=== PATIENT | female | born 1935 | race Caucasian/White ===

== ENCOUNTER 2017-06-22 13:50 | Observation (INO) ==
--- NOTE | 2017-06-22 14:15 | Emergency Department Note ---
Disposition Clinical Impression: Aortic atherosclerosis, Chest pain, rule out acute myocardial infarction Dyspnea Qualifiers: Dyspnea type: unspecified Qualified Code(s): R06.00 - Dyspnea, unspecified Disposition: Admitted As Inpatient Condition: Fair Referrals: Lang Flannery Jr, MD [Primary Care Provider] - Forms: ED Satisfaction Letter Time of Disposition: 17:43 SOB HPI - General Chief Complaint: ED Shortness of Breath/Dyspnea Stated Complaint: MARLENA Time Seen by Provider: 06/22/17 14:13 Source: patient Mode of arrival: ambulatory Limitations: no limitations Nursing Notes Reviewed: Yes Vital Signs Reviewed: Yes - History of Present Illness 82-year-old female hx of HTN, DM, complaining of shortness of breath last 1-2 days, she states the shortness of breath occurred acutely, she felt acutely short of breath, patient denies any chest pain. Patient states that she is no history of DVT or PE, no recent surgery prolonged recumbency, denies any hemoptysis or leg swelling. Patient states that she has no history of cardiac workup, she has no history of high blood pressure or diabetes. Pt Subjective Complaint: shortness of breath Onset (ago): hour(s) Context: occurred during exertion Severity: mild Improves with: nothing Worsens with: nothing Associated symptoms: Reports: orthopnea. Denies: chest pain, pain with inspiration, fever, cough, sputum production, lower extremity pain, palpitations Treatment prior to arrival: none Cough present: No - Related Data Allergies Allergy/AdvReac Type Severity Reaction Status Date / Time No Known Allergies Allergy Verified 06/22/17 13:53 All systems ED: reviewed and negative except as stated. Review of Systems: As Per HPI Constitutional: Denies: fever, chills Eyes: Denies: eye pain ENT ED: Denies: ear pain Cardiovascular: Denies: chest pain Respiratory: Reports: as per HPI, dyspnea. Denies: cough Gastrointestinal: Denies: abdominal pain Genitourinary: Denies: urgency Musculoskeletal: Denies: back pain, neck pain Integumentary: Denies: rash Neurological: Denies: headache Psychiatric: Denies: anxiety Past Medical History - Past Medical History Attestation: Yes The following information was validated with the patient. Source: patient Medical history: Reports: diabetes, hypertension Psychiatric history: Reports: no psych history - Social History Smoking Status: Never smoker Physical Exam Constitutional: Elderly female appears very anxious, vital signs are stable Eyes: PERRLA, sclera anicteric ENT & Mouth: MMM Neck: normal inspection, neck is supple Resp: CTA bilaterally, no resp distress CV: RRR, no m/g/r GI: normal inspection, soft, no guarding or rigidity Neuro: A&O3, CNII-XII grossly intact, MARCUM Skin: on limited exam, skin intact with no rashes or lesions - General Limitations: no limitations General appearance: alert, in no apparent distress Course Course Narrative: 82 to female with stress of breath, concerning given that she has EKG changes with inverted T waves in V5 and V6, patient is had about a day and a half symptoms she feels short of breath and worse with deep inspiration, with CT of her chest as an concern for PE in this elderly female with acute onset dyspnea, she is not oxygen dependent at baseline, she is not a smoker, does not really have much medical history. Plan is for cardiac workup and she also has large amount of constipation, so the plan will be for possible admission given her age and risk factors. - Reevaluation(s) Reevaluation #1: Spoke with Anthony MARTINO he recommends hydralazine for blood pressure management, and cardiology consult, Dr. Lal has been paged, plan is for admission for shortness of breath EKG changes, mildly elevated BNP, patient will be admitted to medicine service with telemetry Time: 17:43 - Consultations Consultation #1: Consulted Cardiology Time: 17:44 Vital Signs Temperature 98.3 F 06/22/17 13:54 Pulse Rate 90 06/22/17 13:54 Respiratory Rate 18 06/22/17 13:54 Blood Pressure 162/104 06/22/17 13:54 O2 Sat by Pulse Oximetry 100 06/22/17 13:54 Temperature 98.3 F 06/22/17 13:54 Pulse Rate 91 06/22/17 17:07 Respiratory Rate 18 06/22/17 17:07 Blood Pressure 182/121 06/22/17 17:07 O2 Sat by Pulse Oximetry 100 06/22/17 17:07 Oxygen Delivery Oxygen Delivery Room Air Shortness of Breath/Dyspnea - Differential Diagnosis Likely: acute exacerbation of chronic obstructive airways disease, congestive heart failure, pneumonia, pulmonary embolism - Medical Records Medical records reviewed: Yes I reviewed the patient's medical records. - Lab Data Lab results reviewed: Yes I reviewed the patient's lab results. Result diagrams: 06/22/17 14:43 06/22/17 14:43 Lab Results 06/22/17 06/22/17 06/22/17 Range/Units 14:43 14:43 14:43 WBC 10.9 (4.3-11.1) K/mcL RBC 4.03 (3.82-4.97) M/mcL Hgb 13.1 (11.5-15.4) g/dL Hct 39.6 (35.3-44.9) % MCV 98.3 (83.0-100.0) fL MCH 32.5 (28.0-33.3) pg MCHC 33.1 (31.6-35.5) g/dL RDW 14.1 (11.5-14.5) % Plt Count 246 (140-400) K/mcL MPV 11.0 (9.4-12.4) fL Immature Gran % 0.4 (0-4) % Seg Neutrophils % 74.9 % Lymphocytes % 14.5 % Monocytes % 9.5 % Eosinophils % 0.2 % Basophils % 0.5 % Neutrophils # 8.2 (1.6-8.9) K/mcL Lymphocytes # 1.6 (0.6-4.6) K/mcL Monocytes # 1.0 (0.0-1.3) K/mcL Eosinophils # 0.0 (0.0-0.6) K/mcL Basophils # 0.1 (0.0-0.2) K/mcL Sodium (136-145) mEq/L Potassium (3.5-5.1) mEq/L Chloride (98-107) mEq/L Carbon Dioxide (23-29) mEq/L BUN (8-23) mg/dL Creatinine (0.60-1.20) mg/dL Est GFR ( Amer) (> 60) Est GFR (Non-Af Amer) (> 60) BUN/Creatinine Ratio (6-26) Glucose (70-105) mg/dL Calculated Osmolality (280-300) Lactic Acid 1.4 (0.5-2.2) mmol/L Calcium (8.6-10.3) mg/dL Total Bilirubin (0.3-1.0) mg/dL Direct Bilirubin (0.0-0.2) mg/dL Indirect Bilirubin (0.0-1.2) mg/dL AST (13-39) Units/L ALT (7-52) Units/L Alkaline Phosphatase (34-104) Units/L Troponin I < 0.03 (< 0.04) ng/mL B-Natriuretic Peptide (Less than 100) pg/mL Serum Total Protein (6.4-8.9) g/dL Albumin (3.5-5.7) g/dL Globulin (2.4-3.5) g/dL Albumin/Globulin Ratio (1.1-2.2) Lipase (11-82) Units/L 06/22/17 06/22/17 Range/Units 14:43 14:43 WBC (4.3-11.1) K/mcL RBC (3.82-4.97) M/mcL Hgb (11.5-15.4) g/dL Hct (35.3-44.9) % MCV (83.0-100.0) fL MCH (28.0-33.3) pg MCHC (31.6-35.5) g/dL RDW (11.5-14.5) % Plt Count (140-400) K/mcL MPV (9.4-12.4) fL Immature Gran % (0-4) % Seg Neutrophils % % Lymphocytes % % Monocytes % % Eosinophils % % Basophils % % Neutrophils # (1.6-8.9) K/mcL Lymphocytes # (0.6-4.6) K/mcL Monocytes # (0.0-1.3) K/mcL Eosinophils # (0.0-0.6) K/mcL Basophils # (0.0-0.2) K/mcL Sodium 136 (136-145) mEq/L Potassium 3.9 (3.5-5.1) mEq/L Chloride 103 (98-107) mEq/L Carbon Dioxide 25 (23-29) mEq/L BUN 23 (8-23) mg/dL Creatinine 0.97 (0.60-1.20) mg/dL Est GFR ( Amer) > 60 (> 60) Est GFR (Non-Af Amer) 55 L (> 60) BUN/Creatinine Ratio 24 (6-26) Glucose 151 H (70-105) mg/dL Calculated Osmolality 289 (280-300) Lactic Acid (0.5-2.2) mmol/L Calcium 9.4 (8.6-10.3) mg/dL Total Bilirubin 1.4 H (0.3-1.0) mg/dL Direct Bilirubin 0.3 H (0.0-0.2) mg/dL Indirect Bilirubin 1.1 (0.0-1.2) mg/dL AST 9 L (13-39) Units/L ALT 7 (7-52) Units/L Alkaline Phosphatase 76 (34-104) Units/L Troponin I (< 0.04) ng/mL B-Natriuretic Peptide 114 H (Less than 100) pg/mL Serum Total Protein 7.0 (6.4-8.9) g/dL Albumin 3.9 (3.5-5.7) g/dL Globulin 3.1 (2.4-3.5) g/dL Albumin/Globulin Ratio 1.3 (1.1-2.2) Lipase < 3 L (11-82) Units/L - Radiology Data Radiology results reviewed: Yes I reviewed the patient's radiology results. Chest X-Ray 06/22/17 13:57 IMPRESSION: Calcific atherosclerotic disease aorta. No acute disease. D/ / Jay Jay Dimas / Jay Jay Dimas Interpreting Provider: Jay Jay Dimas Abdomen/Pelvis CT 06/22/17 15:17 IMPRESSION: 1. No evidence of pulmonary emboli. 2. No acute chest findings. 3. No acute findings within the abdomen or pelvis. 4. Moderate to severe atherosclerotic disease of the abdominal aorta with plaque causing approximately 25-30% areas of stenosis. 5. Diffuse osteopenia with severe degenerative changes of the lower thoracic and lumbar spine. Grade 1 anterolisthesis of L3 on L4 is noted. 6. Normal appendix. 7. Small focus of air in the bladder may represent sequela of recent instrumentation. 8. Moderate to large stool burden in the right colon. D/ /22/2017 17:02:19 Martir Bertrand MD / etser Interpreting Provider: Martir Bertrand MD Chest CTA 06/22/17 15:17 IMPRESSION: 1. No evidence of pulmonary emboli. 2. No acute chest findings. 3. No acute findings within the abdomen or pelvis. 4. Moderate to severe atherosclerotic disease of the abdominal aorta with plaque causing approximately 25-30% areas of stenosis. 5. Diffuse osteopenia with severe degenerative changes of the lower thoracic and lumbar spine. Grade 1 anterolisthesis of L3 on L4 is noted. 6. Normal appendix. 7. Small focus of air in the bladder may represent sequela of recent instrumentation. 8. Moderate to large stool burden in the right colon. D/ / 06/22/2017 17:02:19 Martir Bertrand MD / ester Interpreting Provider: Martir Bertrand MD - EKG Data EKG attestation: Yes I reviewed and interpreted this EKG. EKG shows normal: Reports: sinus rhythm Rate: Reports: normal Rhythm: Reports: NSR (90 bpm MT 127 QRS 100 QTC 403 no evidence of acute ST segment elevations or depressions, inverted T wave in V5 V6) T wave inversions noted in: Reports: v5, v6 Interpretation: Reports: nonspecific ST-T wave changes - Core Measures AMI Core Measures Followed: Yes Attestation Statement - Attestation Attestation: I, Bob Curtis DO, examined this patient [id number] and my medical decision-making was reviewed with Dr. Anthony Seymour, Resident Physician. I agree with the documented findings, disposition and treatment plan as described except to the extent set forth below. Please see my progress notes for details. 82-year-old female presents to emergency room complaining of shortness of breath abdominal pain. Patient's pain across anterior chest wall hurts when she takes deep S. Patient denies any smoking history or cardiac disease. Vital signs are stable and in no acute distress. Patient is showing signs of hypoxia which is new for her. She typically does not use oxygen. Lungs are clear heart is regular abdomen is soft nontender nondistended with no guarding no rigidity but she does have some distention of loops of bowel based on my palpation. She also says that she has difficulty with bowel movements at home. She has no signs of pitting edema she has questions appropriately does not show any acute signs of neurologic deficit issue. The patient does speak in full sentences and is not in any distress. She is appropriate neurologic function and shows no acute signs of neurologic deficit. Patient will have screening evaluation completed a CBC chemistry urinalysis as well as EKG chest x -ray and possibly CT scan of the chest and CT abdomen ruling out any other potential pathology considering she is concerning for pulmonary emboli and possible bowel torsion versus constipation. Patient will require further workup and treatment course here in the emergency room. See detailed documentation of the physical exam, medical intervention, medical decision- making and disposition and the resident physician's note. No critical care was applied during this patient's treatment course at this time. 1725 Patient discussed with the hospitalist for what appears to be exertional dyspnea and cardiac strain. Patient will be admitted for shortness of breath related presentation and lateral ischemic changes on EKG. Blood pressure was asked to be augmented. Medications provided here. No other concerns or issues noted at this time. Admission process could be completed.
[2017-06-22 14:59] LABS: Basophils # 0.1 K/mcL (0.0-0.2); Basophils % 0.5 %; Eosinophils % 0.2 %; Hematocrit 39.6 % (35.3-44.9); Hemoglobin 13.1 g/dL (11.5-15.4); Immature Granulocytes % 0.4 % (0-4); Lymphocytes # 1.6 K/mcL (0.6-4.6); Lymphocytes % 14.5 %; Mean Corpuscular HGB Conc 33.1 g/dL (31.6-35.5); Mean Corpuscular Hemoglobin 32.5 pg (28.0-33.3); Mean Corpuscular Volume 98.3 fL (83.0-100.0); Monocytes % 9.5 %; Neutrophils # 8.2 K/mcL (1.6-8.9); Platelet Count 246 K/mcL (140-400); Red Blood Count 4.03 M/mcL (3.82-4.97); Red Cell Distribution Width 14.1 % (11.5-14.5); Segmented Neutrophils % 74.9 %
[2017-06-22 15:04] LABS: Albumin 3.9 g/dL (3.5-5.7); Bilirubin,Direct 0.3 mg/dL (0.0-0.2); Bilirubin,Indirect 1.1 mg/dL (0.0-1.2); Bilirubin,Total 1.4 mg/dL (0.3-1.0)
[2017-06-22 16:00] LABS: Alanine Aminotransferase 7 Units/L (7-52); Albumin/Globulin Ratio 1.3 (1.1-2.2); Alkaline Phosphatase 76 Units/L (34-104); Aspartate Amino Transferase 9 Units/L (13-39); BUN/Creatinine Ratio 24 (6-26); Blood Urea Nitrogen 23 mg/dL (8-23); Calcium 9.4 mg/dL (8.6-10.3); Carbon Dioxide 25 mEq/L (23-29); Chloride 103 mEq/L (98-107); Globulin 3.1 g/dL (2.4-3.5); Glucose 151 mg/dL (70-105); Lipase < 3 Units/L (11-82); Osmolality,Calculated 289 (280-300); Potassium 3.9 mEq/L (3.5-5.1); Sodium 136 mEq/L (136-145); eGFR For African Americans > 60 (> 60); eGFR For Non-African Americans 55 (> 60)
[2017-06-22] MEDS ORDERED: Aspirin 81 MG TAB.CHEW PO ONE (17:32)
--- NOTE | 2017-06-22 18:03 | Internal Med History&Physical ---
Date of Encounter: 06/22/17 Time of Encounter: 18:00 Assessment and Plan (1) Hypertensive urgency Current visit: Yes Status: Acute Patient most likely has uncontrolled hypertension for prolonged Time with EKG changes of LVH with strain pattern will obtain 2-D echo in the morning (2) Diabetes 1.5, managed as type 2 Current visit: Yes Status: Chronic Chronic resume home medication and place on sliding scale (3) Obesity Current visit: Yes Status: Chronic Chronic Qualifiers: Obesity type: due to excess calories Obesity classification: adult class 2 (BMI 35 - 39.9) Serious obesity comorbidity presence: unspecified whether serious comorbidity present Body mass index: unspecified BMI Qualified Code( s): E66.09 - Other obesity due to excess calories (4) Chest pain, rule out acute myocardial infarction Current visit: Yes Status: Acute Currently chest pain with shortness of breath we will obtain nuclear stress test in a.m. (5) Dyspnea Current visit: Yes Status: Acute Likely anginal equivalent CTA was negative for pulmonary embolism Qualifiers: Dyspnea type: unspecified Qualified Code(s): R06.00 - Dyspnea, unspecified Internal Medicine - H&P: HPI Chief complaint: chest pain and sob Admitted From: Emergency Dept Plans for Post Hospital Care: Home History of present illness: Ms. Cox is a 82 year old female Patient with history of diabetes, hypertension, obesity, but no prior cardiac event history patient presented emergency room due to shortness of breath she has been having also some chest pain in the last few days she says she would just some pain she laid down and it goes away but no chest pain today Because of acute shortness of breath had a CTA done which was negative for pulmonary embolism blood pressure was 186/109 and came down to 182/121 EKG shows some changes of LVH with strain pattern with T-wave inversion in lead 5 and 6 which is not of ischemia but mostly of LVH with strain patient admitted for further cardiac evaluation. Past Med Surg Social Fam HX - Past Medical History Medical history: diabetes, hypertension Psychiatric history: no psych history - Social History Smoking Status: Never smoker Internal Medicine - H&P: Meds Aspirin Enteric Coated [Aspirin EC] 81 mg PO DAILY 06/22/17 [History] Febuxostat [Uloric] 80 mg PO DAILY 06/22/17 [History] Fesoterodine Fumarate [Toviaz] 4 mg PO DAILY 06/22/17 [History] HYDROcodone/Acet 5/325 mg [Ryan 5-325 mg] 1 tab PO Q6H PRN 06/22/17 [History] Ibuprofen [Ibuprofen] 800 mg PO TID PRN 06/22/17 [History] Indapamide [Lozol] 2.5 mg PO DAILY 06/22/17 [History] Insulin DETEMIR [Levemir Flextouch] 28 unit SQ QAM 06/22/17 [History] LORazepam [Ativan] 1 mg PO BID PRN 06/22/17 [History] Linaclotide [Linzess] 290 mcg PO DAILY 06/22/17 [History] Lisinopril [Zestril] 20 mg PO DAILY 06/22/17 [History] Omeprazole [PriLOSEC] 20 mg PO DAILY 06/22/17 [History] Promethazine [Phenergan] 25 mg PO Q6H PRN 06/22/17 [History] Sitagliptin Phosphate [Januvia] 50 mg PO DAILY 06/22/17 [History] 3 Allergy/AdvReac Type Severity Reaction Status Date / Time No Known Allergies Allergy Verified 06/22/17 13:53 All Systems PM: A 10-system review of systems was performed and is negative for pertinent findings except as documented above in the HPI. - Constitutional Constitutional: no chills, no fever(s), no night sweats - EENT Eyes: no change in vision, no discharge, no pain, no photophobia Ears: no ear discharge, no ear pain, no tinnitus Nose, mouth and throat: no dysphagia, no nasal discharge, no neck pain, no sore throat - Cardiovascular Cardiovascular ROS IM: chest pain, dyspnea, dyspnea on exertion - Respiratory Respiratory: dyspnea on exertion - Gastrointestinal Gastrointestinal: no abdominal pain, no diarrhea, no hematemesis, no hematochezia, no melena, no nausea, no vomiting - Genitourinary Genitourinary: no change in urinary stream, no dysuria, no flank pain, no hematuria - Musculoskeletal Musculoskeletal ROS IM: no numbness, no tingling - Constitutional Vitals: Temp Pulse Resp BP Pulse Ox 98.3 F 91 18 182/121 100 06/22/17 13:54 06/22/17 17:07 06/22/17 17:07 06/22/17 17:07 06/22/17 17:07 - Eye Eye exam: Present: PERRL, conjuntiva pink, sclera anicteric Pupils: Present: PERRL - Neck Neck exam general surgery: Present: supple, trachea midline. Absent: lymphadenopathy - Respiratory Respiratory exam: Present: CTAB. Absent: accessory muscle use, rales, rhonchi, wheezes - Cardiovascular Cardiovascular exam: Present: RRR, +S1, +S2. Absent: diastolic murmur, gallop, rubs, systolic murmur - GI/Abdominal GI/Abdominal exam: Present: normal bowel sounds, soft, no peritoneal signs. Absent: distended, tenderness Internal Med - H&P Results - Labs CBC & Chem 7: 06/22/17 14:43 06/22/17 14:43 Labs: Short CBC 06/22/17 Range/Units 14:43 WBC 10.9 (4.3-11.1) K/mcL Hgb 13.1 (11.5-15.4) g/dL Hct 39.6 (35.3-44.9) % Plt Count 246 (140-400) K/mcL Neutrophils # 8.2 (1.6-8.9) K/mcL BMP 06/22/17 14:43 Sodium 136 Potassium 3.9 Chloride 103 Carbon Dioxide 25 BUN 23 Creatinine 0.97 Glucose 151 H Calcium 9.4 Cardiac Enzymes 06/22/17 Range/Units 14:43 Troponin I < 0.03 (< 0.04) ng/mL Liver Function 06/22/17 Range/Units 14:43 Total Bilirubin 1.4 H (0.3-1.0) mg/dL Direct Bilirubin 0.3 H (0.0-0.2) mg/dL AST 9 L (13-39) Units/L ALT 7 (7-52) Units/L Alkaline Phosphatase 76 (34-104) Units/L Albumin 3.9 (3.5-5.7) g/dL - Impressions ITS Impressions Chest X-Ray 06/22/17 13:57 IMPRESSION: Calcific atherosclerotic disease aorta. No acute disease. D/ / Jay Jay Dimas / Jay Jay Dimas Interpreting Provider: Jay Jay Dimas Abdomen/Pelvis CT 06/22/17 15:17 IMPRESSION: 1. No evidence of pulmonary emboli. 2. No acute chest findings. 3. No acute findings within the abdomen or pelvis. 4. Moderate to severe atherosclerotic disease of the abdominal aorta with plaque causing approximately 25-30% areas of stenosis. 5. Diffuse osteopenia with severe degenerative changes of the lower thoracic and lumbar spine. Grade 1 anterolisthesis of L3 on L4 is noted. 6. Normal appendix. 7. Small focus of air in the bladder may represent sequela of recent instrumentation. 8. Moderate to large stool burden in the right colon. D/ /22/2017 17:02:19 Martir Bertrand MD / ester Interpreting Provider: Martir Bertrand MD Chest CTA 06/22/17 15:17
[2017-06-22] MEDS ORDERED: Naloxone 0.4 MG/ML INJ IVP PRN (18:07)
[2017-06-22] MEDS ORDERED: traMADol 50 MG TABLET PO PRN (18:07)
[2017-06-22] MEDS ORDERED: Acetaminophen 325 MG TABLET PO PRN (18:07)
[2017-06-22] MEDS ORDERED: *HR* LORazepam 1 MG TABLET PO PRN (18:10)
[2017-06-22] MEDS ORDERED: Ibuprofen 800 MG TABLET PO PRN (18:10)
[2017-06-22] MEDS ORDERED: *HR* HYDROcodone/Acet 5/325 mg TABLET PO PRN (18:10)
[2017-06-22 19:04] LABS: Bacteria,Urine Many per hpf (None-Few); Bilirubin,Urine Negative (Negative); Blood,Urine Negative (Negative); Clarity,Urine Cloudy (Clear); Color,Urine Yellow (Yellow); Glucose,Urine (UA) Normal (Normal); Hyaline Casts,Urine Few per lpf (None-Few); Ketones,Urine Negative (Negative); Leukocyte Esterase,Urine Negative (Negative); Nitrite,Urine Negative (Negative); PH,Urine 6.5 pH Units (5.0-8.0); Protein,Urine Trace mg/dL (Neg-Trace); Specific Gravity,Urine > 1.030 (1.010-1.025); Squamous Epithelial Cell,Urine Many per lpf (None-Few); Urobilinogen,Urine Normal (Normal)
[2017-06-22] MEDS: amLODIPine 5 MG TABLET PO SCH (20:20)
[2017-06-22] MEDS ORDERED: amLODIPine 5 MG TABLET PO ONE (20:30)
[2017-06-22] MEDS: 0.9 % Sodium Chloride 1,000 ML IVC SCH (21:29)
[2017-06-23 00:54] LABS: Basophils # 0.1 K/mcL (0.0-0.2); Basophils % 0.5 %; Eosinophils % 0.3 %; Hematocrit 36.9 % (35.3-44.9); Hemoglobin 12.3 g/dL (11.5-15.4); Immature Granulocytes % 0.5 % (0-4); Lymphocytes # 1.3 K/mcL (0.6-4.6); Lymphocytes % 12.9 %; Mean Corpuscular HGB Conc 33.3 g/dL (31.6-35.5); Mean Corpuscular Hemoglobin 32.6 pg (28.0-33.3); Mean Corpuscular Volume 97.9 fL (83.0-100.0); Mean Platelet Volume 10.5 fL (9.4-12.4); Monocytes # 1.2 K/mcL (0.0-1.3); Monocytes % 11.6 %; Neutrophils # 7.6 K/mcL (1.6-8.9); Platelet Count 222 K/mcL (140-400); Red Blood Count 3.77 M/mcL (3.82-4.97); Red Cell Distribution Width 14.1 % (11.5-14.5); Segmented Neutrophils % 74.2 %
[2017-06-23 01:44] LABS: Alanine Aminotransferase 6 Units/L (7-52); Albumin 3.4 g/dL (3.5-5.7); Albumin/Globulin Ratio 1.2 (1.1-2.2); Alkaline Phosphatase 67 Units/L (34-104); Aspartate Amino Transferase 9 Units/L (13-39); BUN/Creatinine Ratio 22 (6-26); Blood Urea Nitrogen 21 mg/dL (8-23); Calcium 9.1 mg/dL (8.6-10.3); Carbon Dioxide 26 mEq/L (23-29); Chloride 103 mEq/L (98-107); Chol/HDL Ratio 3.3 (0-4.9); Cholesterol 201 mg/dL (< 200); Globulin 2.9 g/dL (2.4-3.5); Glucose 134 mg/dL (70-105); HDL Cholesterol 61 mg/dL (40-59); LDL Cholesterol,Calculated 128 mg/dL (0-99); Magnesium 1.8 mg/dL (1.6-2.6); Osmolality,Calculated 287 (280-300); Potassium 3.8 mEq/L (3.5-5.1); Sodium 136 mEq/L (136-145); Total Protein 6.3 g/dL (6.4-8.9); Triglycerides 62 mg/dL (< 150); eGFR For African Americans > 60 (> 60); eGFR For Non-African Americans 56 (> 60)
[2017-06-23] MEDS ORDERED: Regadenoson 0.4 MG/5 ML SYRINGE IVP ONE (06:29)
[2017-06-23] MEDS ORDERED: INSULIN DETEMIR 28 UNIT SQ SCH (09:00)
--- NOTE | 2017-06-23 11:23 | Internal Med Progress Note ---
Date of Encounter: 06/23/17 Time of Encounter: 10:58 - Assessment and plan (1) Chest pain, rule out acute myocardial infarction Current Visit: Yes Status: Acute Assessment and plan: Resolved at this time Serial TNI negative awaiting 2D echo results s/p nuclear stress test: negative for ischemic perfusion defect will continue ASA, Statin (2) Hypertensive urgency Current Visit: Yes Status: Resolved Assessment and plan: resolved at this time BP within acceptable range continue home meds (3) Dyspnea Current Visit: Yes Status: Resolved Assessment and plan: resolved at this time will f/u 2D echo Qualifiers: Dyspnea type: unspecified Qualified Code(s): R06.00 - Dyspnea, unspecified (4) Diabetes mellitus Current Visit: Yes Status: Chronic Assessment and plan: hold oral antihyperglycemic agents sliding scale insulin algorithm monitor FS and BG ADA diet Qualifiers: Diabetes mellitus type: type 2 Diabetes mellitus complication status: with unspecified complications Diabetes mellitus longterm insulin use: with longterm use Qualified Code(s): E11.8 - Type 2 diabetes mellitus with unspecified complications; Z79.4 - retirement (current) use of insulin; Z79.4 - retirement ( current) use of insulin; Z79.4 - csm consultant (current) use of insulin; Z79.4 - csm consultant (current) use of insulin (5) DVT prophylaxis Current Visit: Yes Status: Acute Assessment and plan: Heparin SQ - Subjective Interval history: Patient seen and examined with present at bedside. Pt reports of feeling better compared to the previous day. Denies any chest pain or shortness of breath. BP within acceptable range. pt s/p nuclear stress test and echocardiogram will await final reports and tentative d/c in am - Constitutional Vitals: Temp Pulse Resp BP Pulse Ox 97.6 F 84 16 144/74 96 06/23/17 11:04 06/23/17 11:04 06/23/17 11:04 06/23/17 11:04 06/23/17 11:04 General appearance: Present: A&O X 3, no acute distress - Head Head exam: Present: atraumatic, normocephalic - Eye Eye exam: Present: conjuntiva pink, sclera anicteric (right eye blindness ) - Respiratory Respiratory exam: Present: CTAB. Absent: accessory muscle use, rales, rhonchi, wheezes - Cardiovascular Cardiovascular exam: Present: RRR, +S1, +S2. Absent: diastolic murmur, gallop, rubs, systolic murmur - GI/Abdominal GI/Abdominal exam: Present: normal bowel sounds, soft, no peritoneal signs. Absent: distended, tenderness - Extremities Exam Extremities exam: Present: warm, radial pulses palpable and symmetrical. Absent : calf tenderness - Neurological Exam Neurological exam: Present: alert, oriented X3 - Psychiatric Psychiatric exam: Present: normal affect, normal mood Internal Medicine: Result - Labs CBC & Chem 7: 06/23/17 00:48 06/23/17 00:48 Labs: Short CBC 06/23/17 Range/Units 00:48 WBC 10.2 (4.3-11.1) K/mcL Hgb 12.3 (11.5-15.4) g/dL Hct 36.9 (35.3-44.9) % Plt Count 222 (140-400) K/mcL Neutrophils # 7.6 (1.6-8.9) K/mcL BMP 06/23/17 00:48 Sodium 136 Potassium 3.8 Chloride 103 Carbon Dioxide 26 BUN 21 Creatinine 0.95 Glucose 134 H Calcium 9.1 Cardiac Enzymes 06/23/17 06/23/17 Range/Units 00:48 07:05 Troponin I 0.03 0.03 (< 0.04) ng/mL Liver Function 06/23/17 Range/Units 00:48 Total Bilirubin 1.0 (0.3-1.0) mg/dL AST 9 L (13-39) Units/L ALT 6 L (7-52) Units/L Alkaline Phosphatase 67 (34-104) Units/L Albumin 3.4 L (3.5-5.7) g/dL Consult Discharge Plan - Plan Referrals: Lang Flannery Jr, MD [Primary Care Provider] -
[2017-06-23] MEDS ORDERED: *HR* Dextrose 50 % in Water (Syg) 50 ML SYRINGE IVP PRN (11:24)
[2017-06-23] MEDS ORDERED: D5% in Water 1,000 ML IVC PRN (11:24)
[2017-06-23] MEDS ORDERED: Dextrose Gel 15 GM/37.5 ML TUBE PO PRN ×2 (11:24)
[2017-06-23] MEDS: Lisinopril 20 MG TABLET PO SCH (11:31)
[2017-06-23] MEDS: (Febuxostat [Uloric] 80 MG) PO SCH (11:32)
[2017-06-23] MEDS: Insulin DETEMIR 100 UNIT/ML X5UNITS SQ SCH (11:32)
[2017-06-23] MEDS: Aspirin Enteric Coated 81 MG Tablet PO SCH (11:32)
[2017-06-23] MEDS: amLODIPine 5 MG TABLET PO SCH (11:32)
[2017-06-23] MEDS: Sennosides/Docusate Sodium TABLET PO SCH ×2 (12:27→21:27)
[2017-06-23] MEDS: Insulin LISPRO 300 UNITS/3 ML VIAL SQ SCH ×2 (13:17→17:00)
[2017-06-23] MEDS: *HR* Heparin 5,000 UNIT/ML VIAL SQ SCH (16:34)
[2017-06-23] MEDS: 0.9 % Sodium Chloride 1,000 ML IVC SCH (16:38)
[2017-06-23] MEDS ORDERED: Insulin LISPRO 300 UNITS/3 ML VIAL SQ SCH (21:00)
[2017-06-24 05:22] LABS: Basophils % 0.4 %; Eosinophils # 0.1 K/mcL (0.0-0.6); Eosinophils % 0.7 %; Hematocrit 33.6 % (35.3-44.9); Hemoglobin 11.1 g/dL (11.5-15.4); Immature Granulocytes % 0.5 % (0-4); Lymphocytes # 1.1 K/mcL (0.6-4.6); Lymphocytes % 14.8 %; Mean Corpuscular Hemoglobin 32.6 pg (28.0-33.3); Mean Corpuscular Volume 98.8 fL (83.0-100.0); Mean Platelet Volume 10.7 fL (9.4-12.4); Monocytes # 0.9 K/mcL (0.0-1.3); Monocytes % 11.8 %; Neutrophils # 5.4 K/mcL (1.6-8.9); Platelet Count 235 K/mcL (140-400); Red Cell Distribution Width 14.3 % (11.5-14.5); Segmented Neutrophils % 71.8 %
[2017-06-24 05:40] LABS: BUN/Creatinine Ratio 21 (6-26); Blood Urea Nitrogen 21 mg/dL (8-23); Calcium 8.5 mg/dL (8.6-10.3); Carbon Dioxide 22 mEq/L (23-29); Chloride 110 mEq/L (98-107); Glucose 128 mg/dL (70-105); Magnesium 1.8 mg/dL (1.6-2.6); Osmolality,Calculated 293 (280-300); Phosphorous 3.5 mg/dL (2.7-4.5); Potassium 3.5 mEq/L (3.5-5.1); Sodium 139 mEq/L (136-145); eGFR For African Americans > 60 (> 60); eGFR For Non-African Americans 53 (> 60)
[2017-06-24] MEDS: *HR* Heparin 5,000 UNIT/ML VIAL SQ SCH (05:57)
[2017-06-24] MEDS: Insulin LISPRO 300 UNITS/3 ML VIAL SQ SCH ×2 (07:38→11:52)
[2017-06-24] MEDS: Lisinopril 20 MG TABLET PO SCH (08:43)
[2017-06-24] MEDS: amLODIPine 5 MG TABLET PO SCH (08:43)
[2017-06-24] MEDS: Insulin DETEMIR 100 UNIT/ML X5UNITS SQ SCH (08:43)
[2017-06-24] MEDS: Aspirin Enteric Coated 81 MG Tablet PO SCH (08:43)
[2017-06-24] MEDS: Sennosides/Docusate Sodium TABLET PO SCH (08:43)
[2017-06-24] MEDS: (Febuxostat [Uloric] 80 MG) PO SCH (08:43)
--- NOTE | 2017-06-24 10:16 | Electrocardiograph Report ---
[place] [id number] Test Date: 2017-06-22 Pat Name: Kortney Cox Department: 102 Room: 2A23 Gender: F Toolman: Mahendra : 1935 Requested By: Bob Curtis Order Number: [id number] Reading MD: Chelo Phoenix Measurements Intervals [place] Rate: 90 P: -56 [place]: 127 QRS: -55 QRSD: 100 T: 2 QT: 355 QTc: 403 Interpretive Statements SINUS RHYTHM WITH FREQUENT SUPRAVENTRICULAR PREMATURE COMPLEXES MARKED LEFT AXIS DEVIATION [QRS AXIS < -30] LEFT VENTRICULAR HYPERTROPHY AND ST-T CHANGE [VOLTAGE CRITERIA PLUS ST/T ABNORMALITY] BASELINE ARTIFACT Electronically Signed On 06-24-2017 10:14:16 EST by Chelo Phoenix
[2017-06-24 10:42] VITALS: BP 149/63
--- NOTE | 2017-06-24 13:25 | Discharge Summary ---
Date of Encounter: 06/24/17 Time of Encounter: 13:06 - Discharge Diagnosis (1) Chest pain, rule out acute myocardial infarction Priority: Primary Status: Resolved (2) Hypertensive urgency Priority: Primary Status: Resolved (3) Dyspnea Priority: Secondary Status: Resolved Qualifiers: Dyspnea type: unspecified Qualified Code(s): R06.00 - Dyspnea, unspecified (4) Diabetes mellitus Priority: Secondary Status: Chronic Qualifiers: Diabetes mellitus type: type 2 Diabetes mellitus complication status: with unspecified complications Diabetes mellitus middle or intermediate school principal insulin use: with middle or intermediate school principal use Qualified Code(s): E11.8 - Type 2 diabetes mellitus with unspecified complications; Z79.4 - USP (current) use of insulin; Z79.4 - USP ( current) use of insulin; Z79.4 - USP (current) use of insulin; Z79.4 - USP (current) use of insulin (5) DVT prophylaxis Priority: Secondary Status: Acute - Discharge Medications Prescriptions: amLODIPine [Norvasc] 10 mg PO DAILY #30 tablet Home Medications: Aspirin Enteric Coated [Aspirin EC] 81 mg PO DAILY 06/22/17 [History] Febuxostat [Uloric] 80 mg PO DAILY 06/22/17 [History] Fesoterodine Fumarate [Toviaz] 4 mg PO DAILY 06/22/17 [History] HYDROcodone/Acet 5/325 mg [[place] 5-325 mg] 1 tab PO Q6H PRN 06/22/17 [History] Ibuprofen 800 mg PO TID PRN 06/22/17 [History] Indapamide [Lozol] 2.5 mg PO DAILY 06/22/17 [History] Insulin DETEMIR [Levemir Flextouch] 28 unit SQ QAM 06/22/17 [History] LORazepam [Ativan] 1 mg PO BID PRN 06/22/17 [History] Linaclotide [Linzess] 290 mcg PO DAILY 06/22/17 [History] Lisinopril [Zestril] 20 mg PO DAILY 06/22/17 [History] Omeprazole [PriLOSEC] 20 mg PO DAILY 06/22/17 [History] Promethazine [Phenergan] 25 mg PO Q6H PRN 06/22/17 [History] Sitagliptin Phosphate [Januvia] 50 mg PO DAILY 06/22/17 [History] amLODIPine [Norvasc] 10 mg PO DAILY #30 tablet 06/24/17 [Rx] Allergies/Adverse Reactions: 3 Allergy/AdvReac Type Severity Reaction Status Date / Time No Known Allergies Allergy Verified 06/22/17 13:53 Date of admission: 06/22/17 19:10 Primary care physician: Lang Flannery Jr, MD Discharging clinician: Nikia العراقي Anticipated date of discharge: 06/24/17 - Patient Status Disposition: Home, Self-Care Condition: Good Functional capacity at discharge: independent ambulation Overall status at discharge: patient is back to baseline - Discharge Instructions Follow Up With: Lang Flannery Jr, MD [Primary Care Provider] - Additional Instructions: Please follow up with your primary care physician within five days after your discharge from the hospital. Please follow up with cardiology within one to two weeks after your discharge from the hospital. (Cardiology appointment request has been submitted, you will receive a phone call to schedule this appointment) You were noted to have elevated blood pressure upon arrival to the ER, due to which Amlodipine 10mg once a day has been added to your home medications. Please closely monitor your blood pressure at home and keep a daily log of your blood pressure reading. Take this blood pressure log with you to your primary care doctor's appointment. Hold your home dose of Lisinopril and Amlodipine if your systolic blood pressure is less than 100. Resume all other medications as prescribed by your primary care physician. - Diet and Activity Activity: increase activity as tolerated Diet: diabetic diet, low fat, low cholesterol Hospital course: Ms. Cox is a 82 year old female with PMH Of HTN, DM who was admitted for evaluation of chest pain and hypertensive urgency. Pt underwent nuclear stress test which was negative for ischemic perfusion defect. She was also started on amlodipine in addition to continuation of her home dose of Lisinopril , which provided with appropriate blood pressure control. At this time, pt has complete resolution of her presenting symptoms. She will be discharged to home today witf follow up with PCP and cardio. Pt and (present at bedside) demonstrate understanding of her diagnosis and agree with the discharge care and plan. - Time Spent with Patient Total time spent providing and/or coordinating discharge services: Less than 30 minutes - Constitutional Vitals: Temp Pulse Resp BP Pulse Ox 98.4 F 81 14 149/63 93 06/24/17 10:36 06/24/17 10:36 06/24/17 10:36 06/24/17 10:36 06/24/17 10:36 General appearance: Present: cooperative, A&O X 3, pleasant, no acute distress - Head Head exam: Present: atraumatic, normocephalic - Eye Eye exam: Present: conjuntiva pink, sclera anicteric (right eye blindness) - Respiratory Respiratory exam: Present: CTAB. Absent: accessory muscle use, rales, rhonchi, wheezes - Cardiovascular Cardiovascular exam: Present: RRR, +S1, +S2 - GI/Abdominal GI/Abdominal exam: Present: normal bowel sounds, soft, no peritoneal signs. Absent: distended, tenderness - Extremities Exam Extremities exam: Present: warm, radial pulses palpable and symmetrical. Absent : calf tenderness, cyanotic, pedal edema - Neurological Exam Neurological exam: Present: alert, oriented X3 - Psychiatric Psychiatric exam: Present: normal affect, normal mood
== END 2017-06-24 14:27 | disposition home or self-care (01) ==
LOC: EMEROO 13:50 → 2ANU 13:50
PROVIDERS: ADMIT Internal Medicine Cardiovascular Disease; ATTEND Internal Medicine

== ENCOUNTER 2017-10-12 05:31 | Observation (INO) ==
--- NOTE | 2017-10-12 06:01 | Emergency Department Note ---
Disposition Clinical Impression: BERNY (acute kidney injury) UTI (urinary tract infection) Qualifiers: Urinary tract infection type: site unspecified Hematuria presence: without hematuria Qualified Code(s): N39.0 - Urinary tract infection, site not specified Disposition: Home, Self-Care Condition: Good Instructions: Urinary Tract Infection in Women (ED) Reasons to Return/Additional Instructions: Please follow up with your primary care provider in 3-5 days. I have provided information to the [facility]. Please return to the emergency department if you have any worsening of your symptoms including worsening of your abdominal pain, burning with urination, fever, chills, changes in mentation or any other symptoms that may be concerning to you. Please take all medications as prescribed. Prescriptions: Ciprofloxacin HCl [Cipro] 250 mg PO BID #14 tab Referrals: [facility] [Outside] Time of Disposition: 07:02 General Adult HPI - General Chief complaint: ED Abdominal Pain Stated complaint: "Bilat Flank Pain/Dizzy" Time Seen by Provider: 10/12/17 05:38 Source: patient, family Mode of arrival: wheelchair Limitations: no limitations Nursing Notes Reviewed: Yes Vital Signs Reviewed: Yes - History of Present Illness HPI Narrative: Patient is an 82-year-old female that presents to the emergency department for pain with urination and dizziness. Patient states that she has been having dizziness described as the room spinning for the past couple of days. States that symptoms are made worse when she lays down. Patient states that she has had some burning with urination but only produces small amounts of urine because she does not feel that she drinks enough water. Patient states that she has been having lower abdominal pain and points to the suprapubic area when asked where her pain is located. Patient denies any radiation of pain. Pain Scale: 0 - Related Data Home Medications Medication Instructions Recorded Confirmed Aspirin Enteric Coated [Aspirin EC] 81 mg PO DAILY 06/22/17 06/22/17 Febuxostat [Uloric] 80 mg PO DAILY 06/22/17 06/22/17 Fesoterodine Fumarate [Toviaz] 4 mg PO DAILY 06/22/17 HYDROcodone/Acet 5/325 mg [[place] 1 tab PO Q6H PRN 06/22/17 06/22/17 5-325 mg] Ibuprofen 800 mg PO TID PRN 06/22/17 06/22/17 Indapamide [Lozol] 2.5 mg PO DAILY 06/22/17 06/22/17 Insulin DETEMIR [Levemir Flextouch] 28 unit SQ QAM 06/22/17 06/22/17 LORazepam [Ativan] 1 mg PO BID PRN 06/22/17 06/22/17 Linaclotide [Linzess] 290 mcg PO DAILY 06/22/17 06/22/17 Lisinopril [Zestril] 20 mg PO DAILY 06/22/17 06/22/17 Omeprazole [PriLOSEC] 20 mg PO DAILY 06/22/17 06/22/17 Promethazine [Phenergan] 25 mg PO Q6H PRN 06/22/17 06/22/17 Sitagliptin Phosphate [Januvia] 50 mg PO DAILY 06/22/17 06/22/17 Previous Rx's Medication Instructions Recorded amLODIPine [Norvasc] 10 mg PO DAILY #30 tablet 06/24/17 Ciprofloxacin HCl [Cipro] 250 mg PO BID #14 tab 10/12/17 Allergies Allergy/AdvReac Type Severity Reaction Status Date / Time No Known Allergies Allergy Verified 06/22/17 13:53 All systems ED: reviewed and negative except as stated. Constitutional: Denies: fever, chills Cardiovascular: Denies: chest pain Respiratory: Denies: dyspnea Gastrointestinal: Reports: abdominal pain. Denies: nausea, vomiting Genitourinary: Reports: dysuria. Denies: urgency, frequency, hematuria Neurological: Denies: headache, weakness, numbness, paresthesias Past Medical History - Past Medical History Medical history: Reports: diabetes, hypertension Psychiatric history: Reports: no psych history - Social History Smoking Status: Never smoker Alcohol use: Reports: none Drug use: Reports: none Physical Exam - General Limitations: no limitations General appearance: alert, in no apparent distress - Head Head exam: atraumatic, normocephalic - Eye Eye exam: Present: EOMI, other (Patient's right eye is not midline appears to be gazing laterally. Family and patient states that this is normal for her and she has no sight out of her right eye.) - Neck Neck exam: Present: normal inspection, full ROM, trachea midline - Respiratory Respiratory exam: Present: normal lung sounds bilaterally. Absent: respiratory distress, wheezes - Cardiovascular Cardiovascular exam: Present: regular rate, normal rhythm, normal heart sounds, +S1, +S2 - Abdominal Exam Abdominal exam: Present: soft, Non-Tender, normal bowel sounds - Neurological Exam Neurological exam: Present: alert, oriented X3 - Expanded Neurological Exam Speech: Present: fluid speech Cranial nerves: EOM function (II, III, IV, ): Normal, facial sensation (V): Normal, facial palsy (VII): Normal, gag reflex (IX): Normal, spinal accessory function (XI): Normal, tongue deviation (XII): Normal Cerebellar function: finger to nose: Normal, heel to salomon: Normal Motor strength - LUE: 5/5 Motor strength - RUE: 5/5 Motor strength - LLE: 5/5 Motor strength - RLE: 5/5 Upper motor neuron exam: pronator drift: Absent bilaterally Sensory exam upper extremity: light touch: Normal Sensory exam lower extremity: light touch: Normal Coma Scale Eye Opening: Spontaneous Coma Scale Motor Response: Obeys Commands Coma Scale Verbal Response: Oriented Coma Scale Total: 15 - Psychiatric Psychiatric exam: Present: normal affect, normal mood - Skin Skin exam: Present: warm, dry, intact Course Vital Signs Temperature 97.5 F L 10/12/17 05:51 Pulse Rate 94 10/12/17 05:51 Respiratory Rate 18 10/12/17 05:51 Blood Pressure 130/73 10/12/17 05:51 O2 Sat by Pulse Oximetry 99 10/12/17 05:51 Temperature 97.5 F L 10/12/17 05:51 Pulse Rate 94 10/12/17 05:51 Respiratory Rate 18 10/12/17 05:51 Blood Pressure 130/73 10/12/17 05:51 O2 Sat by Pulse Oximetry 99 10/12/17 05:51 Oxygen Delivery Oxygen Delivery Room Air Medical Decision Making - MDM Narrative Medical decision making narrative: Due to the patient presenting with abdominal pain and pain with urination will obtain basic laboratory tests clinic CBC, BMP, urinalysis and EKG. Patient's EKG showed sinus rhythm. Urinalysis showed urinary tract infection. Patient did have a mildly elevated creatinine of 1.46. Remainder of her laboratory testing was unremarkable. The patient will be given a prescription for Cipro and will be discharged home with recommendation to follow-up the primary care provider or to return to the emergency department if she has any worsening of her symptoms. Family is in agreement with discharge and comes will take the patient home and returning if anything seems to worsen. - EKG Data EKG #1 EKG attestation: Yes I reviewed and interpreted this EKG. EKG results narrative: EKG shows a sinus rhythm at a rate of 96 bpm, MA interval of 184, QRS duration of 104, QTc of 394. With a left axis deviation. This is compared to previous EKG on 08/18/13 which showed a sinus rhythm at a rate of 95 bpm. The left axis deviation was present on previous EKG. No STEMI is noted on EKG.
[2017-10-12 06:26] LABS: Basophils # 0.1 K/mcL (0.0-0.2); Eosinophils # 0.1 K/mcL (0.0-0.6); Eosinophils % 1.7 %; Hemoglobin 13.2 g/dL (11.5-15.4); Immature Granulocytes % 0.1 % (0-4); Lymphocytes # 2.6 K/mcL (0.6-4.6); Lymphocytes % 38.3 %; Mean Corpuscular HGB Conc 33.8 g/dL (31.6-35.5); Mean Corpuscular Hemoglobin 33.4 pg (28.0-33.3); Mean Corpuscular Volume 98.7 fL (83.0-100.0); Mean Platelet Volume 10.6 fL (9.4-12.4); Monocytes # 0.5 K/mcL (0.0-1.3); Monocytes % 6.7 %; Neutrophils # 3.6 K/mcL (1.6-8.9); Platelet Count 257 K/mcL (140-400); Red Blood Count 3.95 M/mcL (3.82-4.97); Red Cell Distribution Width 13.5 % (11.5-14.5); Segmented Neutrophils % 52.2 %
[2017-10-12 06:46] LABS: BUN/Creatinine Ratio 19 (6-26); Blood Urea Nitrogen 28 mg/dL (8-23); Calcium 9.3 mg/dL (8.6-10.3); Carbon Dioxide 24 mEq/L (23-29); Chloride 104 mEq/L (98-107); Glucose 151 mg/dL (70-105); Osmolality,Calculated 292 (280-300); Potassium 3.5 mEq/L (3.5-5.1); Sodium 137 mEq/L (136-145); eGFR For African Americans 41 (> 60); eGFR For Non-African Americans 34 (> 60)
[2017-10-12 06:52] LABS: Bilirubin,Urine Negative (Negative); Blood,Urine Negative (Negative); Clarity,Urine Cloudy (Clear); Color,Urine Yellow (Yellow); Glucose,Urine (UA) Normal (Normal); Ketones,Urine Negative (Negative); Leukocyte Esterase,Urine Moderate (Negative); Nitrite,Urine Positive (Negative); Protein,Urine Trace mg/dL (Neg-Trace); Specific Gravity,Urine 1.027 (1.010-1.025); Urobilinogen,Urine Normal (Normal)
[2017-10-12 06:54] LABS: Bacteria,Urine Many per hpf (None-Few); Hyaline Casts,Urine None Seen per lpf (None-Few); Squamous Epithelial Cell,Urine Many per lpf (None-Few); WBC,Urine 50-100 per hpf (0-3)
--- NOTE | 2017-10-12 06:59 | Emergency Department Note ---
Disposition Clinical Impression: BERNY (acute kidney injury) UTI (urinary tract infection) Qualifiers: Urinary tract infection type: site unspecified Hematuria presence: without hematuria Qualified Code(s): N39.0 - Urinary tract infection, site not specified Disposition: Home, Self-Care Condition: Good Instructions: Urinary Tract Infection in Women (ED) Reasons to Return/Additional Instructions: Please follow up with your primary care provider in 3-5 days. I have provided information to the [place]. Please return to the emergency department if you have any worsening of your symptoms including worsening of your abdominal pain, burning with urination, fever, chills, changes in mentation or any other symptoms that may be concerning to you. Please take all medications as prescribed. Prescriptions: Ciprofloxacin HCl [Cipro] 250 mg PO BID #14 tab Referrals: [facility] [Outside] Lang Flannery Jr, MD [Primary Care Provider] - Forms: ED Satisfaction Letter, Work/School Release General Adult HPI - General Chief complaint: ED Abdominal Pain Stated complaint: "Bilat Flank Pain/Dizzy" Time Seen by Provider: 10/12/17 05:38 Source: patient, family Mode of arrival: wheelchair Limitations: no limitations Nursing Notes Reviewed: Yes Vital Signs Reviewed: Yes - History of Present Illness Pain Scale: 0 - Related Data Home Medications Medication Instructions Recorded Confirmed Aspirin Enteric Coated [Aspirin EC] 81 mg PO DAILY 06/22/17 06/22/17 Febuxostat [Uloric] 80 mg PO DAILY 06/22/17 06/22/17 Fesoterodine Fumarate [Toviaz] 4 mg PO DAILY 06/22/17 HYDROcodone/Acet 5/325 mg [[place] 1 tab PO Q6H PRN 06/22/17 06/22/17 5-325 mg] Ibuprofen 800 mg PO TID PRN 06/22/17 06/22/17 Indapamide [Lozol] 2.5 mg PO DAILY 06/22/17 06/22/17 Insulin DETEMIR [Levemir Flextouch] 28 unit SQ QAM 06/22/17 06/22/17 LORazepam [Ativan] 1 mg PO BID PRN 06/22/17 06/22/17 Linaclotide [Linzess] 290 mcg PO DAILY 06/22/17 06/22/17 Lisinopril [Zestril] 20 mg PO DAILY 06/22/17 06/22/17 Omeprazole [PriLOSEC] 20 mg PO DAILY 06/22/17 06/22/17 Promethazine [Phenergan] 25 mg PO Q6H PRN 06/22/17 06/22/17 Sitagliptin Phosphate [Januvia] 50 mg PO DAILY 06/22/17 06/22/17 Previous Rx's Medication Instructions Recorded amLODIPine [Norvasc] 10 mg PO DAILY #30 tablet 06/24/17 Ciprofloxacin HCl [Cipro] 250 mg PO BID #14 tab 10/12/17 Allergies Allergy/AdvReac Type Severity Reaction Status Date / Time No Known Allergies Allergy Verified 06/22/17 13:53 Constitutional: Denies: fever, chills Cardiovascular: Denies: chest pain Respiratory: Denies: dyspnea Gastrointestinal: Reports: abdominal pain. Denies: nausea, vomiting Genitourinary: Reports: dysuria. Denies: urgency, frequency, hematuria Neurological: Denies: headache, weakness, numbness, paresthesias Past Medical History - Past Medical History Medical history: Reports: diabetes, hypertension Psychiatric history: Reports: no psych history - Social History Smoking Status: Never smoker Alcohol use: Reports: none Drug use: Reports: none Physical Exam - General Limitations: no limitations General appearance: alert, in no apparent distress Course Vital Signs Temperature 97.5 F L 10/12/17 05:51 Pulse Rate 94 10/12/17 05:51 Respiratory Rate 18 10/12/17 05:51 Blood Pressure 130/73 10/12/17 05:51 O2 Sat by Pulse Oximetry 99 10/12/17 05:51 Temperature 97.5 F L 10/12/17 05:51 Pulse Rate 91 10/12/17 06:56 Respiratory Rate 20 10/12/17 06:56 Blood Pressure 128/81 10/12/17 06:56 O2 Sat by Pulse Oximetry 99 10/12/17 06:56 Oxygen Delivery Oxygen Delivery Room Air Medical Decision Making - Lab Data Result diagrams: 10/12/17 06:00 10/12/17 06:00 Lab Results 10/12/17 10/12/17 10/12/17 Range/Units 05:46 06:00 06:00 WBC 6.9 (4.3-11.1) K/mcL RBC 3.95 (3.82-4.97) M/mcL Hgb 13.2 (11.5-15.4) g/dL Hct 39.0 (35.3-44.9) % MCV 98.7 (83.0-100.0) fL MCH 33.4 H (28.0-33.3) pg MCHC 33.8 (31.6-35.5) g/dL RDW 13.5 (11.5-14.5) % Plt Count 257 (140-400) K/mcL MPV 10.6 (9.4-12.4) fL Immature Gran % 0.1 (0-4) % Seg Neutrophils % 52.2 % Lymphocytes % 38.3 % Monocytes % 6.7 % Eosinophils % 1.7 % Basophils % 1.0 % Neutrophils # 3.6 (1.6-8.9) K/mcL Lymphocytes # 2.6 (0.6-4.6) K/mcL Monocytes # 0.5 (0.0-1.3) K/mcL Eosinophils # 0.1 (0.0-0.6) K/mcL Basophils # 0.1 (0.0-0.2) K/mcL Sodium 137 (136-145) mEq/L Potassium 3.5 (3.5-5.1) mEq/L Chloride 104 (98-107) mEq/L Carbon Dioxide 24 (23-29) mEq/L BUN 28 H (8-23) mg/dL Creatinine 1.46 H (0.60-1.20) mg/dL Est GFR ( Amer) 41 L (> 60) Est GFR (Non-Af Amer) 34 L (> 60) BUN/Creatinine Ratio 19 (6-26) Glucose 151 H (70-105) mg/dL Calculated Osmolality 292 (280-300) Calcium 9.3 (8.6-10.3) mg/dL Urine Color Yellow (Yellow) Urine Clarity Cloudy A (Clear) Urine pH 6.0 (5.0-8.0) pH Units Ur Specific [place] 1.027 H (1.010-1.025) Urine Protein Trace (Neg-Trace) mg/dL Urine Glucose (UA) Normal (Normal) mg/dL Urine Ketones Negative (Negative) mg/dL Urine Blood Negative (Negative) Urine Nitrite Positive A (Negative) Urine Bilirubin Negative (Negative) Urine Urobilinogen Normal (Normal) mg/dL Ur Leukocyte Esterase Moderate H (Negative) Urine Microscopic RBC 5-15 H (0-3) per hpf Urine Microscopic WBC 50-100 H (0-3) per hpf Ur Squamous Epith Cells Many H (None-Few) per lpf Urine Bacteria Many H (None-Few) per hpf Hyaline Casts None Seen (None-Few) per lpf Ur Culture Indicated? NO. A (NO) Attestation Statement - Attestation Attestation: I, Gregorio Contreras MD, personally evaluated this patient and discussed their management with the resident physician. I reviewed the resident's note and agree with the documented findings, medical decision making, and plan of care. 82-year-old female presents to the emergency with a complaint of some bilateral flank pain as well as dysuria and suprapubic pain. No fever. No nausea or vomiting. She also complains that earlier she had some vertigo type symptoms and states that when she would lie down the room was spinning. This has now resolved. On examination patient is a well-developed well-nourished elderly female in no acute distress. She is alert. She does appear to have dementia. Breath sounds are clear and equal bilaterally. Heart regular. Abdomen soft with normal bowel sounds. Mild suprapubic tenderness. No CVA tenderness Labs reviewed.
[2017-10-12] MEDS ORDERED: 0.9 % Sodium Chloride 1,000 ML IVC ONE (07:25)
[2017-10-12] MEDS ORDERED: cefTRIAXone 2,000 MG in Water for inj. (sterile) 20 ML 20 ML IVP ONE (07:25)
--- NOTE | 2017-10-12 07:27 | Emergency Department Note ---
Disposition Clinical Impression: BERNY (acute kidney injury) UTI (urinary tract infection) Qualifiers: Urinary tract infection type: site unspecified Hematuria presence: without hematuria Qualified Code(s): N39.0 - Urinary tract infection, site not specified Disposition: Home, Self-Care Condition: Good Instructions: Urinary Tract Infection in Women (ED) Reasons to Return/Additional Instructions: Please follow up with your primary care provider in 3-5 days. I have provided information to the [facility]. Please return to the emergency department if you have any worsening of your symptoms including worsening of your abdominal pain, burning with urination, fever, chills, changes in mentation or any other symptoms that may be concerning to you. Please take all medications as prescribed. Prescriptions: Ciprofloxacin HCl [Cipro] 250 mg PO BID #14 tab Referrals: [facility] [Outside] Lang Flannery Jr, MD [Primary Care Provider] - Forms: ED Satisfaction Letter, Work/School Release General Adult HPI - General Chief complaint: ED Abdominal Pain Stated complaint: "Bilat Flank Pain/Dizzy" Time Seen by Provider: 10/12/17 05:38 Source: patient, family Mode of arrival: wheelchair Limitations: no limitations - History of Present Illness Pain Scale: 0 - Related Data Home Medications Medication Instructions Recorded Confirmed Aspirin Enteric Coated [Aspirin EC] 81 mg PO DAILY 06/22/17 06/22/17 Febuxostat [Uloric] 80 mg PO DAILY 06/22/17 06/22/17 Fesoterodine Fumarate [Toviaz] 4 mg PO DAILY 06/22/17 HYDROcodone/Acet 5/325 mg [[place] 1 tab PO Q6H PRN 06/22/17 06/22/17 5-325 mg] Ibuprofen 800 mg PO TID PRN 06/22/17 06/22/17 Indapamide [Lozol] 2.5 mg PO DAILY 06/22/17 06/22/17 Insulin DETEMIR [Levemir Flextouch] 28 unit SQ QAM 06/22/17 06/22/17 LORazepam [Ativan] 1 mg PO BID PRN 06/22/17 06/22/17 Linaclotide [Linzess] 290 mcg PO DAILY 06/22/17 06/22/17 Lisinopril [Zestril] 20 mg PO DAILY 06/22/17 06/22/17 Omeprazole [PriLOSEC] 20 mg PO DAILY 06/22/17 06/22/17 Promethazine [Phenergan] 25 mg PO Q6H PRN 06/22/17 06/22/17 Sitagliptin Phosphate [Januvia] 50 mg PO DAILY 06/22/17 06/22/17 Previous Rx's Medication Instructions Recorded amLODIPine [Norvasc] 10 mg PO DAILY #30 tablet 06/24/17 Ciprofloxacin HCl [Cipro] 250 mg PO BID #14 tab 10/12/17 Allergies Allergy/AdvReac Type Severity Reaction Status Date / Time No Known Allergies Allergy Verified 06/22/17 13:53 Constitutional: Denies: fever, chills Cardiovascular: Denies: chest pain Respiratory: Denies: dyspnea Gastrointestinal: Reports: abdominal pain. Denies: nausea, vomiting Genitourinary: Reports: dysuria. Denies: urgency, frequency, hematuria Neurological: Denies: headache, weakness, numbness, paresthesias Past Medical History - Past Medical History Medical history: Reports: diabetes, hypertension Psychiatric history: Reports: no psych history - Social History Smoking Status: Never smoker Alcohol use: Reports: none Drug use: Reports: none Physical Exam - General Limitations: no limitations General appearance: alert, in no apparent distress Course Vital Signs Temperature 97.5 F L 10/12/17 05:51 Pulse Rate 94 10/12/17 05:51 Respiratory Rate 18 10/12/17 05:51 Blood Pressure 130/73 10/12/17 05:51 O2 Sat by Pulse Oximetry 99 10/12/17 05:51 Temperature 97.5 F L 10/12/17 05:51 Pulse Rate 91 10/12/17 06:56 Respiratory Rate 20 10/12/17 06:56 Blood Pressure 128/81 10/12/17 06:56 O2 Sat by Pulse Oximetry 99 10/12/17 06:56 Oxygen Delivery Oxygen Delivery Room Air Medical Decision Making - Lab Data Result diagrams: 10/12/17 06:00 10/12/17 06:00 Lab Results 10/12/17 10/12/17 10/12/17 Range/Units 05:46 06:00 06:00 WBC 6.9 (4.3-11.1) K/mcL RBC 3.95 (3.82-4.97) M/mcL Hgb 13.2 (11.5-15.4) g/dL Hct 39.0 (35.3-44.9) % MCV 98.7 (83.0-100.0) fL MCH 33.4 H (28.0-33.3) pg MCHC 33.8 (31.6-35.5) g/dL RDW 13.5 (11.5-14.5) % Plt Count 257 (140-400) K/mcL MPV 10.6 (9.4-12.4) fL Immature Gran % 0.1 (0-4) % Seg Neutrophils % 52.2 % Lymphocytes % 38.3 % Monocytes % 6.7 % Eosinophils % 1.7 % Basophils % 1.0 % Neutrophils # 3.6 (1.6-8.9) K/mcL Lymphocytes # 2.6 (0.6-4.6) K/mcL Monocytes # 0.5 (0.0-1.3) K/mcL Eosinophils # 0.1 (0.0-0.6) K/mcL Basophils # 0.1 (0.0-0.2) K/mcL Sodium 137 (136-145) mEq/L Potassium 3.5 (3.5-5.1) mEq/L Chloride 104 (98-107) mEq/L Carbon Dioxide 24 (23-29) mEq/L BUN 28 H (8-23) mg/dL Creatinine 1.46 H (0.60-1.20) mg/dL Est GFR ( Amer) 41 L (> 60) Est GFR (Non-Af Amer) 34 L (> 60) BUN/Creatinine Ratio 19 (6-26) Glucose 151 H (70-105) mg/dL Calculated Osmolality 292 (280-300) Calcium 9.3 (8.6-10.3) mg/dL Urine Color Yellow (Yellow) Urine Clarity Cloudy A (Clear) Urine pH 6.0 (5.0-8.0) pH Units Ur Specific [place] 1.027 H (1.010-1.025) Urine Protein Trace (Neg-Trace) mg/dL Urine Glucose (UA) Normal (Normal) mg/dL Urine Ketones Negative (Negative) mg/dL Urine Blood Negative (Negative) Urine Nitrite Positive A (Negative) Urine Bilirubin Negative (Negative) Urine Urobilinogen Normal (Normal) mg/dL Ur Leukocyte Esterase Moderate H (Negative) Urine Microscopic RBC 5-15 H (0-3) per hpf Urine Microscopic WBC 50-100 H (0-3) per hpf Ur Squamous Epith Cells Many H (None-Few) per lpf Urine Bacteria Many H (None-Few) per hpf Hyaline Casts None Seen (None-Few) per lpf Ur Culture Indicated? NO. A (NO) Attestation Statement - Attestation Attestation: I examined this patient and my medical decision-making was reviewed with the Resident Physician. I agree with the documented findings, disposition and treatment plan as described except to the extent set forth below. [id number] time provided At change of shift the plan of care was not endorsed to me as the patient was planning on being discharged. However she states she feels dizzy and is uncomfortable going home. I did review her labs. She will be admitted for UTI
--- NOTE | 2017-10-12 07:28 | Emergency Department Note ---
Disposition Clinical Impression: BERNY (acute kidney injury), Light headedness, Decreased ambulation status UTI (urinary tract infection) Qualifiers: Urinary tract infection type: site unspecified Hematuria presence: without hematuria Qualified Code(s): N39.0 - Urinary tract infection, site not specified Disposition: Admitted As Inpatient Condition: Good Instructions: Urinary Tract Infection in Women (ED) Reasons to Return/Additional Instructions: Please follow up with your primary care provider in 3-5 days. I have provided information to the [facility] clinic. Please return to the emergency department if you have any worsening of your symptoms including worsening of your abdominal pain, burning with urination, fever, chills, changes in mentation or any other symptoms that may be concerning to you. Please take all medications as prescribed. Prescriptions: Ciprofloxacin HCl [Cipro] 250 mg PO BID #14 tab Referrals: [facility] [Outside] Lang Flannery Jr, MD [Primary Care Provider] - Forms: ED Satisfaction Letter, Work/School Release Time of Disposition: 07:26 Abdominal Pain HPI - General Chief Complaint: ED Abdominal Pain Stated Complaint: "Bilat Flank Pain/Dizzy" Time Seen by Provider: 10/12/17 05:38 Source: patient, family Mode of arrival: wheelchair Limitations: no limitations Nursing Notes Reviewed: Yes Vital Signs Reviewed: Yes - History of Present Illness Pain Scale: 0 - Related Data Home Medications Medication Instructions Recorded Confirmed Aspirin Enteric Coated [Aspirin EC] 81 mg PO DAILY 06/22/17 06/22/17 Febuxostat [Uloric] 80 mg PO DAILY 06/22/17 06/22/17 Fesoterodine Fumarate [Toviaz] 4 mg PO DAILY 06/22/17 HYDROcodone/Acet 5/325 mg [[place] 1 tab PO Q6H PRN 06/22/17 06/22/17 5-325 mg] Ibuprofen 800 mg PO TID PRN 06/22/17 06/22/17 Indapamide [Lozol] 2.5 mg PO DAILY 06/22/17 06/22/17 Insulin DETEMIR [Levemir Flextouch] 28 unit SQ QAM 06/22/17 06/22/17 LORazepam [Ativan] 1 mg PO BID PRN 06/22/17 06/22/17 Linaclotide [Linzess] 290 mcg PO DAILY 06/22/17 06/22/17 Lisinopril [Zestril] 20 mg PO DAILY 06/22/17 06/22/17 Omeprazole [PriLOSEC] 20 mg PO DAILY 06/22/17 06/22/17 Promethazine [Phenergan] 25 mg PO Q6H PRN 06/22/17 06/22/17 Sitagliptin Phosphate [Januvia] 50 mg PO DAILY 06/22/17 06/22/17 Previous Rx's Medication Instructions Recorded amLODIPine [Norvasc] 10 mg PO DAILY #30 tablet 06/24/17 Ciprofloxacin HCl [Cipro] 250 mg PO BID #14 tab 10/12/17 Allergies Allergy/AdvReac Type Severity Reaction Status Date / Time No Known Allergies Allergy Verified 06/22/17 13:53 Constitutional: Denies: fever, chills Cardiovascular: Denies: chest pain Respiratory: Denies: dyspnea Gastrointestinal: Reports: abdominal pain. Denies: nausea, vomiting Genitourinary: Reports: dysuria. Denies: urgency, frequency, hematuria Neurological: Denies: headache, weakness, numbness, paresthesias Abdominal Pain PMH - Past Medical History Medical history: Reports: diabetes, hypertension Female Surgical History: Reports: orthopedic, other Psychiatric history: Reports: no psych history - Social History Smoking status: Never smoker Alcohol use: Reports: none Drug use: Reports: none Physical Exam - General Limitations: no limitations General appearance: alert, in no apparent distress - Head Head exam: atraumatic, normocephalic, normal inspection - Eye Eye exam: Present: normal appearance, PERRL, EOMI - ENT ENT exam: normal exam, normal oropharynx, mucous membranes moist - Neck Neck exam: Present: normal inspection, full ROM, trachea midline - Chest Chest inspection: Present: normal inspection, symmetric chest wall rise - Respiratory Respiratory exam: Present: normal lung sounds bilaterally - Cardiovascular Cardiovascular exam: Present: regular rate, normal rhythm, normal heart sounds - Abdominal Exam Abdominal exam: Present: soft, tenderness (Mild suprapubic tenderness). Absent : distention, guarding, rebound, rigidity, Villalta's sign, Rovsing's sign, tenderness at McBurney's Point - Extremities Exam Extremities exam: Present: normal inspection, full ROM. Absent: tenderness, pedal edema - Back Exam Back exam: Present: normal inspection, full ROM. Absent: tenderness - Neurological Exam Neurological exam: Present: alert, oriented X3, CN II-XII intact. Absent: motor sensory deficit - Psychiatric Psychiatric exam: Present: normal affect, normal mood - Skin Skin exam: Present: warm, dry, intact, normal color Course Vital Signs Temperature 97.5 F L 10/12/17 05:51 Pulse Rate 94 10/12/17 05:51 Respiratory Rate 18 10/12/17 05:51 Blood Pressure 130/73 10/12/17 05:51 O2 Sat by Pulse Oximetry 99 10/12/17 05:51 Temperature 97.5 F L 10/12/17 05:51 Pulse Rate 91 10/12/17 06:56 Respiratory Rate 20 10/12/17 06:56 Blood Pressure 128/81 10/12/17 06:56 O2 Sat by Pulse Oximetry 99 10/12/17 06:56 Oxygen Delivery Oxygen Delivery Room Air Abdominal Pain - MDM Narrative Medical decision making narrative: Patient was a signout from Dr. mcgrath and Dr. Contreras. Please see their notes for any additional details. In summary, patient is an 82-year-old female who presented today due to suprapubic abdominal pain. This is been present for the past 24-48 hours. Lab work shows a KI, UTI. Initial plan by previous team was to send the patient home due to normal vital signs. However, patient states that she has light headedness, does not feel safe with ambulation or with going home at this time. We will give the patient IV Rocephin and 1 L normal saline bolus and admit for further care. - Medical Records Medical records reviewed: Yes I reviewed the patient's medical records. - Lab Data Lab results reviewed: Yes I reviewed the patient's lab results. Result diagrams: 10/12/17 06:00 10/12/17 06:00 Lab Results 10/12/17 10/12/17 10/12/17 Range/Units 05:46 06:00 06:00 WBC 6.9 (4.3-11.1) K/mcL RBC 3.95 (3.82-4.97) M/mcL Hgb 13.2 (11.5-15.4) g/dL Hct 39.0 (35.3-44.9) % MCV 98.7 (83.0-100.0) fL MCH 33.4 H (28.0-33.3) pg MCHC 33.8 (31.6-35.5) g/dL RDW 13.5 (11.5-14.5) % Plt Count 257 (140-400) K/mcL MPV 10.6 (9.4-12.4) fL Immature Gran % 0.1 (0-4) % Seg Neutrophils % 52.2 % Lymphocytes % 38.3 % Monocytes % 6.7 % Eosinophils % 1.7 % Basophils % 1.0 % Neutrophils # 3.6 (1.6-8.9) K/mcL Lymphocytes # 2.6 (0.6-4.6) K/mcL Monocytes # 0.5 (0.0-1.3) K/mcL Eosinophils # 0.1 (0.0-0.6) K/mcL Basophils # 0.1 (0.0-0.2) K/mcL Sodium 137 (136-145) mEq/L Potassium 3.5 (3.5-5.1) mEq/L Chloride 104 (98-107) mEq/L Carbon Dioxide 24 (23-29) mEq/L BUN 28 H (8-23) mg/dL Creatinine 1.46 H (0.60-1.20) mg/dL Est GFR ( Amer) 41 L (> 60) Est GFR (Non-Af Amer) 34 L (> 60) BUN/Creatinine Ratio 19 (6-26) Glucose 151 H (70-105) mg/dL Calculated Osmolality 292 (280-300) Calcium 9.3 (8.6-10.3) mg/dL Urine Color Yellow (Yellow) Urine Clarity Cloudy A (Clear) Urine pH 6.0 (5.0-8.0) pH Units Ur Specific [place] 1.027 H (1.010-1.025) Urine Protein Trace (Neg-Trace) mg/dL Urine Glucose (UA) Normal (Normal) mg/dL Urine Ketones Negative (Negative) mg/dL Urine Blood Negative (Negative) Urine Nitrite Positive A (Negative) Urine Bilirubin Negative (Negative) Urine Urobilinogen Normal (Normal) mg/dL Ur Leukocyte Esterase Moderate H (Negative) Urine Microscopic RBC 5-15 H (0-3) per hpf Urine Microscopic WBC 50-100 H (0-3) per hpf Ur Squamous Epith Cells Many H (None-Few) per lpf Urine Bacteria Many H (None-Few) per hpf Hyaline Casts None Seen (None-Few) per lpf Ur Culture Indicated? NO. A (NO) S.B.A.R. - S.B.A.R. Situation: Demographics, MOA Background: Presenting Complaint, Relevant PMH, Meds, & Allergies Assessment: Vital Signs, Course and respsone to treatment, Exam Concerns, Patient/Family Expectation, Pertinant Lab Results, Outstanding Labs Recommendation: Barrier(s) to disposition, Recommendation based on pending studies, treatments, or consults S.B.A.R. Report Given to: Dr. Riley
[2017-10-12] MEDS ORDERED: Naloxone 0.4 MG/ML INJ IVP PRN (08:40)
[2017-10-12] MEDS ORDERED: *HR* Dextrose 50 % in Water (Syg) 50 ML SYRINGE IVP PRN (08:46)
[2017-10-12] MEDS ORDERED: Dextrose Gel 15 GM/37.5 ML TUBE PO PRN ×2 (08:46)
[2017-10-12] MEDS ORDERED: D5% in Water 1,000 ML IVC PRN (08:46)
--- NOTE | 2017-10-12 08:58 | Internal Med History&Physical ---
Date of Encounter: 10/12/17 Time of Encounter: 08:47 Internal Medicine - H&P: HPI Chief complaint: UTI Admitted From: Home Plans for Post Hospital Care: Home History of present illness: Ms. Cox is a 82 year old female who has a history of diabetes hypertension chronic lower back pain presented emergency room for dizziness and weakness for 3 days. Patient lives at home with , she has been falling 3 times in last year. She fell the few weeks ago. Per her daughter she has a lower abdominal pain, on and off for 3 days, but patient denies to me. She denies fever or chills no burning and frequent urination. She denies productive cough. Does complain of dizziness when she stands. Denies room spinning. She does have chronic lower back pain. I reviewed her was her home medication she has been on ativan 1 mg, will try to wean her off due to her fall risk. In the emergency room she had UA shows UTI, creatinine 1.46 elevated from 0.99. Patient is going to be admitted for acute renal failure, UTI, deconditioning and multiple falls at home. I discussed the CODE STATUS with patient and her daughter she wants to be DNR CCA. Past Med Surg Social Fam HX - Past Medical History Medical history: diabetes, hypertension Psychiatric history: no psych history - Social History Smoking Status: Never smoker Alcohol use: none Drug use: none - Family History Mother Hx Family Cancer: Yes Hx Family Endocrine Disorder: Yes (diabetes) Father Hx Family Cancer: Yes (prostate) Internal Medicine - H&P: Meds Aspirin Enteric Coated [Aspirin EC] 81 mg PO DAILY 06/22/17 [History] Febuxostat [Uloric] 80 mg PO DAILY 06/22/17 [History] Fesoterodine Fumarate [Toviaz] 4 mg PO DAILY 06/22/17 [History] Ibuprofen 800 mg PO TID PRN 06/22/17 [History] Insulin DETEMIR [Levemir Flextouch] 28 unit SQ QAM 06/22/17 [History] LORazepam [Ativan] 1 mg PO BID PRN 06/22/17 [History] Lisinopril [Zestril] 20 mg PO DAILY 06/22/17 [History] Omeprazole [PriLOSEC] 20 mg PO DAILY 06/22/17 [History] Promethazine [Phenergan] 25 mg PO Q6H PRN 06/22/17 [History] Sitagliptin Phosphate [Januvia] 50 mg PO DAILY 06/22/17 [History] amLODIPine [Norvasc] 10 mg PO DAILY #30 tablet 06/24/17 [Rx] Ciprofloxacin HCl [Cipro] 250 mg PO BID #14 tab 10/12/17 [Rx] HYDROcodone/Acet 7.5/325 mg [[place] 7.5-325 mg] 1 tab PO Q8H PRN 10/12/17 [ History] Lactulose [Lactulose] 15 ml PO DAILY 10/12/17 [History] 3 Allergy/AdvReac Type Severity Reaction Status Date / Time No Known Allergies Allergy Verified 06/22/17 13:53 All Systems PM: A 10-system review of systems was performed and is negative for pertinent findings except as documented above in the HPI. - Constitutional Vitals: Temp Pulse Resp BP Pulse Ox 97.5 F L 91 20 128/81 99 10/12/17 05:51 10/12/17 06:56 10/12/17 06:56 10/12/17 06:56 10/12/17 06:56 General appearance: Present: A&O X 3, pleasant, answers questions appropriately Internal Med - H&P Results - Labs CBC & Chem 7: 10/12/17 06:00 10/12/17 06:00 - Assessment and plan (1) UTI (urinary tract infection) Current Visit: Yes Status: Acute Assessment and plan: UTI, UA did not meet criteria kfor culture, will order culture, continue ceftriaxone, will check renal US to r/o hydronephrosis Qualifiers: Urinary tract infection type: acute cystitis Hematuria presence: without hematuria Qualified Code(s): N30.00 - Acute cystitis without hematuria (2) Diabetes mellitus Current Visit: Yes Status: Chronic Assessment and plan: Patient has diabetes type 2, insulin-dependent, continue home dose insulin and insulin sliding scale. We will check A1c Qualifiers: Diabetes mellitus type: type 2 Diabetes mellitus termite renewal inspector insulin use: with snf use Diabetes mellitus complication status: with unspecified complications Qualified Code(s): E11.8 - Type 2 diabetes mellitus with unspecified complications; Z79.4 - [facility] (current) use of insulin; Z79.4 - [facility] (current) use of insulin; Z79.4 - [facility] (current) use of insulin; Z79.4 - adjunct faculty for medical terminology (current) use of insulin (3) BERNY (acute kidney injury) Current Visit: Yes Status: Acute Assessment and plan: Patient to baseline creatinine is 0.99, up to 1.46 likely from dehydration. We will give IV fluids follow-up tomorrow (4) Light headedness Current Visit: Yes Status: Acute Assessment and plan: Dizziness. Denies any room spining, likely from dehydration infections we will consult physical therapy (5) Decreased ambulation status Current Visit: Yes Status: Acute Assessment and plan: Patient to reduce the mobility, she has been falling at home, patient was on Ativan 1 mg twice a day, we will reduce the dose she. is also on [place] at home for chronic back pain. We will consult PT (6) Hypertension Current Visit: Yes Status: Acute Assessment and plan: Continue lisinopril Qualifiers: Hypertension type: essential hypertension Qualified Code(s): I10 - Essential (primary) hypertension - Time Spent With Patient Total time spent is greater than 50% in coordination of care (as documented) at patient's floor/unit and/or counseling patient: Greater than 35 minutes
[2017-10-12] MEDS ORDERED: *HR* SitaGLIPtin 25 MG TABLET PO SCH (09:00)
[2017-10-12 10:15] LABS: Estimated Average Glucose 137 mg/dl; Hemoglobin A1C 6.4 %
[2017-10-12 10:18] LABS: Troponin I < 0.03 ng/mL (< 0.04)
[2017-10-12] MEDS: Insulin LISPRO 300 UNITS/3 ML VIAL SQ SCH ×2 (10:31→16:41)
[2017-10-12] MEDS: (Febuxostat [Uloric] 80 MG) PO SCH (10:31)
[2017-10-12] MEDS: Ringers Solution, Lactated 1,000 ML IVC SCH (10:41)
[2017-10-12] MEDS: Aspirin Enteric Coated 81 MG Tablet PO SCH (10:42)
[2017-10-12] MEDS: *HR* HYDROcodone/Acet 7.5/325 mg TABLET PO PRN ×2 (10:42→20:01)
[2017-10-12] MEDS: Lisinopril 20 MG TABLET PO SCH (10:43)
[2017-10-12] MEDS: amLODIPine 5 MG TABLET PO SCH (10:43)
[2017-10-12] MEDS: Insulin DETEMIR 100 UNIT/ML X5UNITS SQ SCH (10:43)
[2017-10-12] MEDS: *HR* LORazepam 1 MG TABLET PO PRN ×2 (10:43→20:01)
[2017-10-12] MEDS: *HR* Heparin 5,000 UNIT/ML VIAL SQ SCH ×2 (15:23→20:02)
[2017-10-12] MEDS ORDERED: Insulin LISPRO 300 UNITS/3 ML VIAL SQ SCH (21:00)
[2017-10-13] MEDS: Ringers Solution, Lactated 1,000 ML IVC SCH ×2 (01:07→06:00)
[2017-10-13] MEDS: *HR* Heparin 5,000 UNIT/ML VIAL SQ SCH ×2 (05:58→13:31)
[2017-10-13] MEDS: *HR* HYDROcodone/Acet 7.5/325 mg TABLET PO PRN (05:59)
[2017-10-13 07:26] LABS: Calcium 8.7 mg/dL (8.6-10.3); Potassium 3.5 mEq/L (3.5-5.1)
[2017-10-13] MEDS: Insulin LISPRO 300 UNITS/3 ML VIAL SQ SCH ×2 (07:37→12:28)
[2017-10-13 07:44] LABS: Basophils # 0.1 K/mcL (0.0-0.2); Eosinophils # 0.1 K/mcL (0.0-0.6); Eosinophils % 1.9 %; Hematocrit 32.8 % (35.3-44.9); Immature Granulocytes % 0.2 % (0-4); Lymphocytes # 2.3 K/mcL (0.6-4.6); Lymphocytes % 44.1 %; Mean Corpuscular HGB Conc 34.5 g/dL (31.6-35.5); Mean Corpuscular Hemoglobin 34.5 pg (28.0-33.3); Mean Platelet Volume 10.8 fL (9.4-12.4); Monocytes # 0.4 K/mcL (0.0-1.3); Monocytes % 7.8 %; Neutrophils # 2.4 K/mcL (1.6-8.9); Platelet Count 204 K/mcL (140-400); Red Blood Count 3.28 M/mcL (3.82-4.97); Red Cell Distribution Width 13.5 % (11.5-14.5)
[2017-10-13 07:47] LABS: Hemoglobin 11.3 g/dL (11.5-15.4)
--- NOTE | 2017-10-13 08:29 | Electrocardiograph Report ---
[place] [id number] Test Date: 2017-10-12 Pat Name: Kortney Cox Department: 103 Room: 3B33 Gender: F Wood Miller: JOSEPH : 1935 Requested By: Brayan Wise Order Number: [id number] Reading MD: Hever Meade Measurements Intervals [place] Rate: 96 P: -12 CT: 184 QRS: -41 QRSD: 104 T: 87 QT: 341 QTc: 394 Interpretive Statements SINUS RHYTHM MARKED LEFT AXIS DEVIATION LEFT VENTRICULAR HYPERTROPHY AND ST-T CHANGE Electronically Signed On 10-13-2017 8:28:14 EDT by Hever Meade
[2017-10-13] MEDS: Lisinopril 20 MG TABLET PO SCH (08:55)
[2017-10-13] MEDS: amLODIPine 5 MG TABLET PO SCH (08:55)
[2017-10-13] MEDS: *HR* LORazepam 1 MG TABLET PO PRN (08:55)
[2017-10-13] MEDS: Aspirin Enteric Coated 81 MG Tablet PO SCH (08:55)
[2017-10-13] MEDS: Insulin DETEMIR 100 UNIT/ML X5UNITS SQ SCH (08:56)
[2017-10-13] MEDS ORDERED: cefTRIAXone 1,000 MG in Water for inj. (sterile) 20 ML 10 ML IVP SCH (09:00)
[2017-10-13] MEDS ORDERED: *HR* SitaGLIPtin 25 MG TABLET PO SCH (09:00)
[2017-10-13] MEDS: (Febuxostat [Uloric] 80 MG) PO SCH (09:36)
--- NOTE | 2017-10-13 15:43 | Discharge Summary ---
- NOTES TO OUTPATIENT PROVIDER Notes to Outpatient Provider: Patient presented with UTI-AK I dehydration. urine culture results Has had multiple falls PT OT recommend home health PT however patient and would like outpatient physical therapy. Patient is on Ativan and Ventura-following at home will decrease Ativan. Monitor electrolytes Orders not resulted at time of discharge: Pending orders 10/12/17 05:46 Culture,Urine [RM] Routine Date of Encounter: 10/13/17 Time of Encounter: 15:40 - Discharge Diagnosis (1) UTI (urinary tract infection) Priority: Primary Status: Acute Qualifiers: Urinary tract infection type: acute cystitis Hematuria presence: without hematuria Qualified Code(s): N30.00 - Acute cystitis without hematuria (2) BERNY (acute kidney injury) Priority: Primary Status: Acute (3) Decreased ambulation status Priority: Secondary Status: Acute (4) Light headedness Priority: Secondary Status: Acute Hospital course: Ms. Cox is a 82 year old female past medical history of diabetes hypertension patient presented to the emergency department with complaints of painful urination and dizziness. Describes burning upon urination and only producing small amounts of urine she does admit that she has not been drinking enough water. She also has been experiencing suprapubic pain off and on for the past 3 days. She was found to have a urinary tract infection as well as a AK I in the ER. She did feel lightheaded dizziness when she stands. She denies any spinning. She does have history of chronic lower back pain. Family reports that she has had multiple falls at home. Patient is on pain medication as well as Ativan. Patient was admitted and was given IV fluid as well as antibiotics. Ativan was decreased 0.5 mg twice a day. Renal ultrasound was obtained which did not show any obstruction. Patient was seen by physical therapy who recommended home PT however patient has refused and would like outpatient physical therapy. Orthostatic vital signs were within normal limits. Creatinine has turned back to baseline. She is eating and drinking and tolerating oral intake. I did advise patient to follow-up with primary care physician and to decrease Ativan 2.5 mg daily I also sent her home with prescription of Cipro 250 mg by mouth twice a day for the next 3 days. Advised patient to take medication as prescribed. Patient verbalized understanding She denies any pain or discomfort and she is limited in roughly stable at this time ready for discharge. Discharge discussed with: patient, family - Time Spent with Patient Total time spent providing and/or coordinating discharge services: - Discharge Medications Prescriptions: Ciprofloxacin HCl [Cipro] 250 mg PO BID 3 Days #6 tab Home Medications: Aspirin Enteric Coated [Aspirin EC] 81 mg PO DAILY 06/22/17 [History] Febuxostat [Uloric] 80 mg PO DAILY 06/22/17 [History] Fesoterodine Fumarate [Toviaz] 4 mg PO DAILY 06/22/17 [History] Ibuprofen 800 mg PO TID PRN 06/22/17 [History] Insulin DETEMIR [Levemir Flextouch] 28 unit SQ QAM 06/22/17 [History] LORazepam [Ativan] 1 mg PO BID PRN 06/22/17 [History] Lisinopril [Zestril] 20 mg PO DAILY 06/22/17 [History] Omeprazole [PriLOSEC] 20 mg PO DAILY 06/22/17 [History] Promethazine [Phenergan] 25 mg PO Q6H PRN 06/22/17 [History] Sitagliptin Phosphate [Januvia] 50 mg PO DAILY 06/22/17 [History] amLODIPine [Norvasc] 10 mg PO DAILY #30 tablet 06/24/17 [Rx] Ciprofloxacin HCl [Cipro] 250 mg PO BID #14 tab 10/12/17 [Rx] HYDROcodone/Acet 7.5/325 mg [Ventura 7.5-325 mg] 1 tab PO Q8H PRN 10/12/17 [ History] Lactulose 15 ml PO DAILY 10/12/17 [History] Ciprofloxacin HCl [Cipro] 250 mg PO BID 3 Days #6 tab 10/13/17 [Rx] Allergies/Adverse Reactions: 3 Allergy/AdvReac Type Severity Reaction Status Date / Time No Known Allergies Allergy Verified 06/22/17 13:53 Date of admission: 10/12/17 08:08 Primary care physician: Lang Flannery Jr, MD Consults: 10/12/17 08:43 Consult to Physical Therapy [CONS] Routine Comment: Evaluate, develop and implement POC Reason for Consult: weakness Does patient have active BEDREST order?: No Is patient medically & hemodynamically stable?: Yes Patient assessed for mobility or mobilized this visit?: Yes Discharging clinician: Yana Gonzalez Anticipated date of discharge: 10/13/17 - Constitutional Vitals: Temp Pulse Resp BP Pulse Ox 97.6 F 74 16 150/77 100 10/13/17 11:00 10/13/17 11:00 10/13/17 11:00 10/13/17 12:40 10/13/17 11:00 General appearance: Present: A&O X 3, pleasant, answers questions appropriately - Head Head exam: Present: atraumatic, normocephalic - Eye Eye exam: Present: PERRL, conjuntiva pink, sclera anicteric Pupils: Present: PERRL - Neck Neck exam general surgery: Present: supple, trachea midline. Absent: lymphadenopathy - Respiratory Respiratory exam: Present: CTAB. Absent: accessory muscle use, rales, rhonchi, wheezes - Cardiovascular Cardiovascular exam: Present: RRR, +S1, +S2. Absent: diastolic murmur, gallop, rubs, systolic murmur - GI/Abdominal GI/Abdominal exam: Present: normal bowel sounds, soft, no peritoneal signs. Absent: distended, tenderness - Extremities Exam Extremities exam: Present: warm, radial pulses palpable and symmetrical. Absent : calf tenderness, cyanotic, pedal edema - Neurological Exam Neurological exam: Present: CN II-XII intact, oriented X3, no focal deficits. Absent: pronater drift, facial droop, speech deficit - Skin Skin exam: Present: dry, intact - Patient Status Disposition: Home, Self-Care Condition: Good Functional capacity at discharge: independent ambulation Overall status at discharge: patient is back to baseline - Discharge Instructions Instructions: Chronic Hypertension (DC) Follow Up With: Lang Flannery Jr, MD [Primary Care Provider] - - Diet and Activity Activity: increase activity as tolerated Diet: advance to your usual diet
[2017-10-13 16:11] VITALS: BP 116/66
== END 2017-10-13 16:40 | disposition home or self-care (01) ==
LOC: 3BNU 05:31 → EMEROO 05:31 → 3BNU 08:30
PROVIDERS: ADMIT Hospitalist; ATTEND Hospitalist

== ENCOUNTER 2019-05-28 17:45 | Inpatient (IN) ==
[2019-05-28] MEDS ORDERED: *HR* OxyCODONE/APAP 7.5/325 TABLET PO STA (18:10)
[2019-05-28 19:44] LABS: Basophils # 0.1 K/mcL (0.0-0.2); Basophils % 1.1 %; Eosinophils # 0.2 K/mcL (0.0-0.6); Eosinophils % 2.4 %; Hematocrit 34.9 % (35.3-44.9); Hemoglobin 11.5 g/dL (11.5-15.4); Immature Granulocytes % 0.5 % (0-4); Lymphocytes # 1.1 K/mcL (0.6-4.6); Lymphocytes % 16.2 %; Mean Corpuscular Hemoglobin 32.8 pg (28.0-33.3); Mean Corpuscular Volume 99.4 fL (83.0-100.0); Mean Platelet Volume 10.3 fL (9.4-12.4); Monocytes # 0.5 K/mcL (0.0-1.3); Monocytes % 7.9 %; Neutrophils # 4.7 K/mcL (1.6-8.9); Platelet Count 222 K/mcL (140-400); Red Blood Count 3.51 M/mcL (3.82-4.97); Red Cell Distribution Width 13.4 % (11.5-14.5); Segmented Neutrophils % 71.9 %; White Blood Count 6.6 K/mcL (4.3-11.1)
[2019-05-28 20:05] LABS: Calcium 9.3 mg/dL (8.6-10.3); Potassium 4.6 mEq/L (3.5-5.1)
[2019-05-28] MEDS ORDERED: 0.9 % Sodium Chloride 1,000 ML IVC ONE (20:08)
[2019-05-28 20:17] LABS: Bilirubin,Urine Negative (Negative); Blood,Urine Negative (Negative); Clarity,Urine Cloudy (Clear); Color,Urine Yellow (Yellow); Glucose,Urine (UA) Normal (Normal); Ketones,Urine Negative (Negative); Leukocyte Esterase,Urine Moderate (Negative); Nitrite,Urine Negative (Negative); Protein,Urine Negative (Neg-Trace); Specific Gravity,Urine 1.017 (1.010-1.025); Urobilinogen,Urine Normal (Normal)
[2019-05-28 20:21] LABS: Bacteria,Urine Many per hpf (None-Few); Hyaline Casts,Urine None Seen per lpf (None-Few); RBC,Urine 0-3 per hpf (0-3); Squamous Epithelial Cell,Urine Few per lpf (None-Few); WBC,Urine 50-100 per hpf (0-3)
[2019-05-28] MEDS ORDERED: 0.9 % Sodium Chloride 1,000 ML IVC SCH (23:45)
[2019-05-28] MEDS ORDERED: Naloxone 0.4 MG/ML INJ IVP PRN (23:55)
[2019-05-28] MEDS ORDERED: Dextrose Gel 15 GM/37.5 ML TUBE PO PRN ×2 (23:59)
[2019-05-28] MEDS ORDERED: D5% in Water 1,000 ML IVC PRN (23:59)
[2019-05-28] MEDS ORDERED: *HR* Dextrose 50 % in Water (Syg) 50 ML SYRINGE IVP PRN (23:59)
[2019-05-29] MEDS ORDERED: Naloxone 0.4 MG/ML INJ IVP PRN
[2019-05-29] MEDS: Insulin LISPRO 300 UNITS/3 ML VIAL SQ SCH ×4 (00:40→18:23)
[2019-05-29 01:08] LABS: Basophils % 0.8 %; Eosinophils # 0.2 K/mcL (0.0-0.6); Eosinophils % 3.6 %; Hematocrit 33.9 % (35.3-44.9); Immature Granulocytes % 0.4 % (0-4); Lymphocytes # 1.6 K/mcL (0.6-4.6); Lymphocytes % 32.9 %; Mean Corpuscular HGB Conc 32.4 g/dL (31.6-35.5); Mean Corpuscular Hemoglobin 32.9 pg (28.0-33.3); Mean Corpuscular Volume 101.5 fL (83.0-100.0); Mean Platelet Volume 10.1 fL (9.4-12.4); Monocytes # 0.4 K/mcL (0.0-1.3); Monocytes % 8.2 %; Neutrophils # 2.6 K/mcL (1.6-8.9); Platelet Count 204 K/mcL (140-400); Red Blood Count 3.34 M/mcL (3.82-4.97); Red Cell Distribution Width 13.2 % (11.5-14.5); Segmented Neutrophils % 54.1 %; White Blood Count 4.8 K/mcL (4.3-11.1)
[2019-05-29 01:32] LABS: Albumin 3.7 g/dL (3.5-5.7); Albumin/Globulin Ratio 1.3 (1.1-2.2); Bilirubin,Total 0.4 mg/dL (0.3-1.0); Calcium 8.9 mg/dL (8.6-10.3); Chol/HDL Ratio 3.5 (0-4.9); Globulin 2.8 g/dL (2.4-3.5); Magnesium 1.9 mg/dL (1.6-2.6); Phosphorous 3.3 mg/dL (2.7-4.5); Potassium 4.4 mEq/L (3.5-5.1); Total Protein 6.5 g/dL (6.4-8.9)
[2019-05-29] MEDS ORDERED: *HR* LORazepam 1 MG TABLET PO PRN (03:17)
[2019-05-29 05:39] LABS: Bilirubin,Urine Negative (Negative); Blood,Urine Negative (Negative); Clarity,Urine Clear (Clear); Color,Urine Yellow (Yellow); Glucose,Urine (UA) Normal (Normal); Ketones,Urine Negative (Negative); Leukocyte Esterase,Urine Moderate (Negative); Nitrite,Urine Positive (Negative); Protein,Urine Negative (Neg-Trace); Specific Gravity,Urine 1.016 (1.010-1.025); Urobilinogen,Urine Normal (Normal)
[2019-05-29 05:40] LABS: Bacteria,Urine Many per hpf (None-Few); Hyaline Casts,Urine None Seen per lpf (None-Few); RBC,Urine 0-3 per hpf (0-3); Squamous Epithelial Cell,Urine Moderate per lpf (None-Few); WBC,Urine 15-30 per hpf (0-3)
[2019-05-29 05:51] LABS: Creatinine,Urine 42 mg/dL
[2019-05-29] MEDS ORDERED: *HR* Heparin 5,000 UNIT/ML VIAL SQ SCH (06:00)
[2019-05-29 06:23] LABS: Troponin I < 0.03 ng/mL (< 0.04)
[2019-05-29 07:56] LABS: Estimated Average Glucose 117 mg/dl
[2019-05-29] MEDS: Aspirin Enteric Coated 81 MG Tablet PO SCH (08:57)
[2019-05-29] MEDS: Pregabalin 75 MG CAPSULE PO SCH ×2 (08:58→21:28)
[2019-05-29] MEDS: Insulin DETEMIR 100 UNIT/ML X5UNITS SQ SCH (08:58)
[2019-05-29] MEDS: Ringers Solution, Lactated 1,000 ML IVC SCH (14:20)
[2019-05-29] MEDS: *HR* Heparin 5,000 UNIT/ML VIAL SQ SCH (18:23)
[2019-05-30] MEDS: Insulin LISPRO 300 UNITS/3 ML VIAL SQ SCH ×4 (00:33→17:29)
[2019-05-30 03:08] LABS: Potassium 4.3 mEq/L (3.5-5.1)
[2019-05-30] MEDS: *HR* Heparin 5,000 UNIT/ML VIAL SQ SCH ×2 (05:39→17:28)
[2019-05-30] MEDS: Ringers Solution, Lactated 1,000 ML IVC SCH (05:47)
[2019-05-30] MEDS: Insulin DETEMIR 100 UNIT/ML X5UNITS SQ SCH (07:37)
[2019-05-30] MEDS: Pregabalin 75 MG CAPSULE PO SCH ×2 (07:37→22:36)
[2019-05-30] MEDS: Aspirin Enteric Coated 81 MG Tablet PO SCH (07:37)
[2019-05-30] MEDS ORDERED: *HR* Propofol 200 MG/20 ML VIAL IVP ONE (07:53)
[2019-05-30] MEDS ORDERED: *HR* FentaNYL (PF) 100 MCG/2 ML VIAL ONE (07:53)
[2019-05-30] MEDS ORDERED: Lidocaine -MPF 2% 2 ML VIAL ONE (07:53)
[2019-05-30] MEDS ORDERED: Dexamethasone 4 MG/ML VIAL ONE (07:53)
[2019-05-30] MEDS ORDERED: Ondansetron 4 MG/2 ML VIAL ONE (07:53)
[2019-05-30] MEDS ORDERED: *HR* Succinylcholine 200 MG/10 ML VIAL IVP ONE (07:53)
[2019-05-30] MEDS ORDERED: *HR* PHENYLEPHRINE 1,000 MCG/10 ML SYRINGE IVP ONE (08:27)
[2019-05-30] MEDS ORDERED: Acetaminophen IV 1,000 MG/100 ML INFUS..BTL ONE (08:35)
[2019-05-30 08:37] LABS: Creatine Kinase 199 Units/L (30-223)
[2019-05-30] MEDS ORDERED: Ondansetron 4 MG/2 ML VIAL IVP ONE (09:13)
[2019-05-30] MEDS ORDERED: *HR* FentaNYL (PF) 100 MCG/2 ML VIAL IVP PRN (09:13)
[2019-05-30] MEDS ORDERED: Dextrose Gel 15 GM/37.5 ML TUBE PO PRN ×2 (10:06)
[2019-05-30] MEDS ORDERED: D5% in Water 1,000 ML IVC PRN (10:06)
[2019-05-30] MEDS ORDERED: Naloxone 0.4 MG/ML INJ IVP PRN ×2 (10:06)
[2019-05-30] MEDS ORDERED: *HR* Dextrose 50 % in Water (Syg) 50 ML SYRINGE IVP PRN (10:06)
[2019-05-31] MEDS: *HR* LORazepam 1 MG TABLET PO PRN (00:26)
[2019-05-31] MEDS: Insulin LISPRO 300 UNITS/3 ML VIAL SQ SCH ×4 (00:29→16:45)
[2019-05-31] MEDS: *HR* Heparin 5,000 UNIT/ML VIAL SQ SCH ×2 (06:35→16:42)
[2019-05-31] MEDS: Insulin DETEMIR 100 UNIT/ML X5UNITS SQ SCH (08:32)
[2019-05-31] MEDS: Aspirin Enteric Coated 81 MG Tablet PO SCH (08:32)
[2019-05-31] MEDS: Pregabalin 75 MG CAPSULE PO SCH ×2 (08:32→21:27)
[2019-05-31 15:02] LABS: Basophils # 0.1 K/mcL (0.0-0.2); Basophils % 0.7 %; Eosinophils # 0.1 K/mcL (0.0-0.6); Eosinophils % 1.1 %; Hematocrit 36.2 % (35.3-44.9); Hemoglobin 11.7 g/dL (11.5-15.4); Immature Granulocytes % 0.3 % (0-4); Lymphocytes # 2.2 K/mcL (0.6-4.6); Lymphocytes % 28.7 %; Mean Corpuscular HGB Conc 32.3 g/dL (31.6-35.5); Mean Corpuscular Hemoglobin 33.4 pg (28.0-33.3); Mean Corpuscular Volume 103.4 fL (83.0-100.0); Mean Platelet Volume 10.1 fL (9.4-12.4); Monocytes # 0.7 K/mcL (0.0-1.3); Monocytes % 8.6 %; Neutrophils # 4.6 K/mcL (1.6-8.9); Platelet Count 228 K/mcL (140-400); Red Cell Distribution Width 13.2 % (11.5-14.5); Segmented Neutrophils % 60.6 %
[2019-05-31 15:03] LABS: White Blood Count 7.6 K/mcL (4.3-11.1)
[2019-05-31 15:21] LABS: Calcium 9.1 mg/dL (8.6-10.3); Potassium 3.8 mEq/L (3.5-5.1)
[2019-06-01] MEDS: Insulin LISPRO 300 UNITS/3 ML VIAL SQ SCH ×5 (00:10→22:44)
[2019-06-01] MEDS: *HR* Heparin 5,000 UNIT/ML VIAL SQ SCH ×2 (05:09→17:25)
[2019-06-01] MEDS: Pregabalin 75 MG CAPSULE PO SCH ×2 (09:41→22:37)
[2019-06-01] MEDS: Aspirin Enteric Coated 81 MG Tablet PO SCH (09:41)
[2019-06-01] MEDS: Insulin DETEMIR 100 UNIT/ML X5UNITS SQ SCH (09:41)
[2019-06-01 11:22] LABS: Calcium 8.6 mg/dL (8.6-10.3); Potassium 4.1 mEq/L (3.5-5.1)
[2019-06-01] MEDS ORDERED: Ringers Solution, Lactated 1,000 ML IVC SCH (15:30)
[2019-06-01] MEDS: Acetaminophen 325 MG TABLET PO PRN ×2 (17:25→22:37)
[2019-06-01] MEDS ORDERED: Insulin DETEMIR 100 UNIT/ML X5UNITS SQ SCH (21:00)
[2019-06-01] MEDS: *HR* LORazepam 1 MG TABLET PO PRN (22:37)
[2019-06-01] MEDS: Nystatin POWDER 30 GM BOTTLE TP SCH (22:44)
[2019-06-02] MEDS: *HR* OxyCODONE Immed Rel 5 MG TABLET PO PRN ×3 (02:25→21:17)
[2019-06-02 07:03] LABS: Calcium 8.9 mg/dL (8.6-10.3)
[2019-06-02] MEDS: *HR* Heparin 5,000 UNIT/ML VIAL SQ SCH ×2 (07:10→17:25)
[2019-06-02] MEDS: Insulin LISPRO 300 UNITS/3 ML VIAL SQ SCH ×4 (08:49→21:18)
[2019-06-02] MEDS: Insulin DETEMIR 100 UNIT/ML X5UNITS SQ SCH ×2 (09:52→21:17)
[2019-06-02] MEDS: Pregabalin 75 MG CAPSULE PO SCH ×2 (09:52→21:17)
[2019-06-02] MEDS: Acetaminophen 325 MG TABLET PO PRN ×2 (09:52→17:24)
[2019-06-02] MEDS: Aspirin Enteric Coated 81 MG Tablet PO SCH (09:52)
[2019-06-02] MEDS: Nystatin POWDER 30 GM BOTTLE TP SCH ×3 (09:54→21:39)
[2019-06-02] MEDS: Lactulose Oral Soln 20 GM/30 ML UDC PO SCH (13:57)
[2019-06-02] MEDS: Ringers Solution, Lactated 1,000 ML IVC SCH (13:58)
[2019-06-03] MEDS: Ringers Solution, Lactated 1,000 ML IVC SCH (00:10)
[2019-06-03] MEDS: Acetaminophen 325 MG TABLET PO PRN ×3 (00:26→20:58)
[2019-06-03] MEDS: *HR* Heparin 5,000 UNIT/ML VIAL SQ SCH ×2 (05:23→16:52)
[2019-06-03 06:03] LABS: Basophils # 0.1 K/mcL (0.0-0.2); Basophils % 1.2 %; Eosinophils # 0.3 K/mcL (0.0-0.6); Eosinophils % 5.7 %; Hematocrit 30.1 % (35.3-44.9); Immature Granulocytes % 0.4 % (0-4); Lymphocytes % 40.8 %; Mean Corpuscular HGB Conc 32.2 g/dL (31.6-35.5); Mean Corpuscular Volume 102.4 fL (83.0-100.0); Mean Platelet Volume 10.2 fL (9.4-12.4); Monocytes # 0.4 K/mcL (0.0-1.3); Monocytes % 8.8 %; Neutrophils # 2.1 K/mcL (1.6-8.9); Platelet Count 246 K/mcL (140-400); Red Blood Count 2.94 M/mcL (3.82-4.97); Red Cell Distribution Width 13.3 % (11.5-14.5); Segmented Neutrophils % 43.1 %; White Blood Count 4.9 K/mcL (4.3-11.1)
[2019-06-03 06:05] LABS: Hemoglobin 9.7 g/dL (11.5-15.4)
[2019-06-03 06:24] LABS: Calcium 8.6 mg/dL (8.6-10.3)
[2019-06-03] MEDS: Insulin LISPRO 300 UNITS/3 ML VIAL SQ SCH ×4 (11:07→20:54)
[2019-06-03] MEDS: Lactulose Oral Soln 20 GM/30 ML UDC PO SCH (11:07)
[2019-06-03] MEDS: Pregabalin 75 MG CAPSULE PO SCH ×2 (11:07→20:54)
[2019-06-03] MEDS: Aspirin Enteric Coated 81 MG Tablet PO SCH (11:07)
[2019-06-03] MEDS: *HR* OxyCODONE Immed Rel 5 MG TABLET PO PRN ×2 (11:08→23:11)
[2019-06-03] MEDS: Nystatin POWDER 30 GM BOTTLE TP SCH ×3 (11:09→21:01)
[2019-06-03] MEDS: Insulin DETEMIR 100 UNIT/ML X5UNITS SQ SCH ×2 (11:17→20:54)
[2019-06-03] MEDS: *HR* LORazepam 1 MG TABLET PO PRN (12:19)
[2019-06-04] MEDS: *HR* LORazepam 1 MG TABLET PO PRN (00:32)
[2019-06-04] MEDS ORDERED: Haloperidol Lactate 5 MG/ML VIAL IVP ONE (04:46)
[2019-06-04] MEDS: *HR* Heparin 5,000 UNIT/ML VIAL SQ SCH (05:29)
[2019-06-04] MEDS ORDERED: *HR* LORazepam 2 MG/ML VIAL IVP ONE (06:20)
[2019-06-04 07:17] LABS: Hematocrit 30.2 % (35.3-44.9); Hemoglobin 10.2 g/dL (11.5-15.4); Mean Corpuscular HGB Conc 33.8 g/dL (31.6-35.5); Mean Corpuscular Volume 97.7 fL (83.0-100.0); Mean Platelet Volume 10.8 fL (9.4-12.4); Platelet Count 262 K/mcL (140-400); Red Blood Count 3.09 M/mcL (3.82-4.97); Red Cell Distribution Width 13.5 % (11.5-14.5); White Blood Count 6.6 K/mcL (4.3-11.1)
[2019-06-04 07:29] LABS: Calcium 8.9 mg/dL (8.6-10.3); Potassium 3.7 mEq/L (3.5-5.1)
[2019-06-04] MEDS: Insulin LISPRO 300 UNITS/3 ML VIAL SQ SCH ×2 (07:40→13:00)
[2019-06-04] MEDS: Pregabalin 75 MG CAPSULE PO SCH (07:47)
[2019-06-04] MEDS: Aspirin Enteric Coated 81 MG Tablet PO SCH (07:47)
[2019-06-04] MEDS: Lactulose Oral Soln 20 GM/30 ML UDC PO SCH (07:48)
[2019-06-04] MEDS: Insulin DETEMIR 100 UNIT/ML X5UNITS SQ SCH (07:50)
[2019-06-04] MEDS: Nystatin POWDER 30 GM BOTTLE TP SCH (07:50)
[2019-06-04] MEDS ORDERED: 0.9 % Sodium Chloride 500 ML IVC ONE (08:28)
[2019-06-04] MEDS ORDERED: 0.9 % Sodium Chloride 1,000 ML IVC SCH (08:30)
[2019-06-04 10:16] VITALS: BP 146/70
[2019-06-04] MEDS: Acetaminophen 325 MG TABLET PO PRN (12:58)
[2019-06-05] MEDS ORDERED: Aspirin 325 MG TABLET PO SCH (09:00)
== END 2019-06-04 15:05 | DRG 481 ==
LOC: EMEROOARM 17:45 → 3NENU 17:45 → SUATTDRO 05-29 08:02
PROVIDERS: ADMIT Family Medicine; ATTEND Family Medicine

== ENCOUNTER 2019-06-12 17:48 | Inpatient (IN) ==
[2019-06-12] MEDS: cefTRIAXone 1,000 MG in Water for inj. (sterile) 10 ML IVP ONE ×2 (18:27→21:00)
[2019-06-12] MEDS: 0.9 % Sodium Chloride 500 ML IVC ONE ×2 (18:27→21:01)
[2019-06-12] MEDS ORDERED: 0.9 % Sodium Chloride 1,000 ML IVC ONE (18:58)
[2019-06-12] MEDS ORDERED: Naloxone 0.4 MG/ML INJ IVP PRN (21:49)
[2019-06-12] MEDS ORDERED: Ondansetron ODT 4 MG TAB.RAPDIS SL PRN (21:49)
[2019-06-12] MEDS ORDERED: D5% in Water 1,000 ML IVC PRN (22:04)
[2019-06-12] MEDS ORDERED: Dextrose Gel 15 GM/37.5 ML TUBE PO PRN ×2 (22:04)
[2019-06-12] MEDS ORDERED: *HR* Dextrose 50 % in Water (Syg) 50 ML SYRINGE IVP PRN (22:04)
[2019-06-12] MEDS ORDERED: Bisacodyl 10 MG RECTAL SUPPOSITORY RC PRN (22:06)
[2019-06-12] MEDS: 0.9 % Sodium Chloride 1,000 ML IVC SCH (22:23)
[2019-06-12] MEDS: *HR* HYDROcodone/Acet 5/325 mg TABLET PO PRN (23:32)
[2019-06-12] MEDS: Insulin LISPRO 300 UNITS/3 ML VIAL SQ SCH (23:47)
[2019-06-13 01:37] LABS: Eosinophils # 0.2 K/mcL (0.0-0.6); Eosinophils % 3.6 %; Hematocrit 29.1 % (35.3-44.9); Hemoglobin 9.6 g/dL (11.5-15.4); Immature Granulocytes % 0.2 % (0-4); Lymphocytes # 0.7 K/mcL (0.6-4.6); Mean Corpuscular Hemoglobin 33.2 pg (28.0-33.3); Mean Corpuscular Volume 100.7 fL (83.0-100.0); Mean Platelet Volume 10.1 fL (9.4-12.4); Monocytes # 0.3 K/mcL (0.0-1.3); Neutrophils # 2.9 K/mcL (1.6-8.9); Platelet Count 326 K/mcL (140-400); Red Blood Count 2.89 M/mcL (3.82-4.97); Segmented Neutrophils % 71.2 %; White Blood Count 4.1 K/mcL (4.3-11.1)
[2019-06-13 01:57] LABS: Calcium 8.4 mg/dL (8.6-10.3); Phosphorous 3.8 mg/dL (2.7-4.5); Potassium 3.9 mEq/L (3.5-5.1)
[2019-06-13] MEDS: *HR* Heparin 5,000 UNIT/ML VIAL SQ SCH ×2 (05:25→17:08)
[2019-06-13] MEDS: *HR* HYDROcodone/Acet 5/325 mg TABLET PO PRN ×3 (05:25→20:24)
[2019-06-13] MEDS: Acetaminophen 325 MG TABLET PO PRN ×2 (07:55→17:07)
[2019-06-13] MEDS: 0.9 % Sodium Chloride 1,000 ML IVC SCH (07:56)
[2019-06-13] MEDS: Nystatin POWDER 30 GM BOTTLE TP SCH ×2 (07:56→20:26)
[2019-06-13] MEDS: cefTRIAXone 1,000 MG in Water for inj. (sterile) 10 ML IVP SCH (07:56)
[2019-06-13] MEDS: Insulin LISPRO 300 UNITS/3 ML VIAL SQ SCH ×4 (08:08→20:25)
[2019-06-13] MEDS: Insulin DETEMIR 100 UNIT/ML X5UNITS SQ SCH (10:41)
[2019-06-13] MEDS: Sodium Bicarbonate 150 MEQ in D5% in Water 1,000 ML IVC SCH (10:41)
[2019-06-13] MEDS: Aspirin Enteric Coated 81 MG Tablet PO SCH (10:41)
[2019-06-13] MEDS: (Febuxostat [Uloric] 80 MG) PO SCH (10:43)
[2019-06-14] MEDS: Acetaminophen 325 MG TABLET PO PRN (00:33)
[2019-06-14] MEDS: Sodium Bicarbonate 150 MEQ in D5% in Water 1,000 ML IVC SCH (00:34)
[2019-06-14] MEDS: *HR* Heparin 5,000 UNIT/ML VIAL SQ SCH ×2 (05:59→18:14)
[2019-06-14 07:44] LABS: Basophils % 0.5 %; Eosinophils # 0.3 K/mcL (0.0-0.6); Eosinophils % 7.8 %; Hematocrit 29.2 % (35.3-44.9); Hemoglobin 9.9 g/dL (11.5-15.4); Immature Granulocytes % 0.3 % (0-4); Lymphocytes # 1.3 K/mcL (0.6-4.6); Lymphocytes % 35.4 %; Mean Corpuscular HGB Conc 33.9 g/dL (31.6-35.5); Mean Corpuscular Volume 97.3 fL (83.0-100.0); Monocytes # 0.3 K/mcL (0.0-1.3); Monocytes % 8.6 %; Neutrophils # 1.8 K/mcL (1.6-8.9); Platelet Count 325 K/mcL (140-400); Red Cell Distribution Width 13.7 % (11.5-14.5); Segmented Neutrophils % 47.4 %; White Blood Count 3.7 K/mcL (4.3-11.1)
[2019-06-14 08:04] LABS: Calcium 8.4 mg/dL (8.6-10.3); Magnesium 1.8 mg/dL (1.6-2.6); Phosphorous 3.4 mg/dL (2.7-4.5); Potassium 3.8 mEq/L (3.5-5.1)
[2019-06-14] MEDS: *HR* HYDROcodone/Acet 5/325 mg TABLET PO PRN ×3 (08:57→22:26)
[2019-06-14] MEDS: amLODIPine 5 MG TABLET PO SCH (08:57)
[2019-06-14] MEDS: Aspirin Enteric Coated 81 MG Tablet PO SCH (08:58)
[2019-06-14] MEDS: Insulin DETEMIR 100 UNIT/ML X5UNITS SQ SCH (08:58)
[2019-06-14] MEDS: Insulin LISPRO 300 UNITS/3 ML VIAL SQ SCH ×4 (08:59→22:09)
[2019-06-14] MEDS: cefTRIAXone 1,000 MG in Water for inj. (sterile) 10 ML IVP SCH (09:00)
[2019-06-14] MEDS: (Febuxostat [Uloric] 80 MG) PO SCH (09:01)
[2019-06-14] MEDS: Nystatin POWDER 30 GM BOTTLE TP SCH ×2 (10:35→22:10)
[2019-06-15 05:29] LABS: Hematocrit 30.3 % (35.3-44.9); Hemoglobin 10.5 g/dL (11.5-15.4); Mean Corpuscular HGB Conc 34.7 g/dL (31.6-35.5); Mean Corpuscular Hemoglobin 33.7 pg (28.0-33.3); Mean Corpuscular Volume 97.1 fL (83.0-100.0); Mean Platelet Volume 10.1 fL (9.4-12.4); Platelet Count 355 K/mcL (140-400); Red Blood Count 3.12 M/mcL (3.82-4.97); Red Cell Distribution Width 13.8 % (11.5-14.5); White Blood Count 3.9 K/mcL (4.3-11.1)
[2019-06-15 05:48] LABS: Calcium 8.6 mg/dL (8.6-10.3); Potassium 3.8 mEq/L (3.5-5.1)
[2019-06-15] MEDS: *HR* Heparin 5,000 UNIT/ML VIAL SQ SCH ×2 (06:24→17:13)
[2019-06-15] MEDS: *HR* HYDROcodone/Acet 5/325 mg TABLET PO PRN ×2 (06:59→17:13)
[2019-06-15] MEDS: Insulin LISPRO 300 UNITS/3 ML VIAL SQ SCH ×4 (08:11→21:36)
[2019-06-15] MEDS: Nystatin POWDER 30 GM BOTTLE TP SCH ×2 (09:00→21:37)
[2019-06-15] MEDS: amLODIPine 5 MG TABLET PO SCH (09:00)
[2019-06-15] MEDS: (Febuxostat [Uloric] 80 MG) PO SCH (09:00)
[2019-06-15] MEDS: Aspirin Enteric Coated 81 MG Tablet PO SCH (09:00)
[2019-06-15] MEDS: Insulin DETEMIR 100 UNIT/ML X5UNITS SQ SCH (13:16)
[2019-06-15] MEDS: Amoxicillin 500 MG CAPSULE PO SCH ×2 (17:13→21:27)
[2019-06-15] MEDS: cefTRIAXone 1,000 MG in Water for inj. (sterile) 10 ML IVP SCH (19:31)
[2019-06-15] MEDS: *HR* LORazepam 1 MG TABLET PO PRN (21:27)
[2019-06-16] MEDS: *HR* HYDROcodone/Acet 5/325 mg TABLET PO PRN ×3 (00:15→16:00)
[2019-06-16 04:58] LABS: Hematocrit 30.6 % (35.3-44.9); Hemoglobin 10.4 g/dL (11.5-15.4); Mean Corpuscular Hemoglobin 32.9 pg (28.0-33.3); Mean Corpuscular Volume 96.8 fL (83.0-100.0); Mean Platelet Volume 10.1 fL (9.4-12.4); Platelet Count 354 K/mcL (140-400); Red Blood Count 3.16 M/mcL (3.82-4.97); Red Cell Distribution Width 13.2 % (11.5-14.5); White Blood Count 4.7 K/mcL (4.3-11.1)
[2019-06-16 05:14] LABS: Calcium 8.7 mg/dL (8.6-10.3)
[2019-06-16] MEDS: *HR* Heparin 5,000 UNIT/ML VIAL SQ SCH ×2 (06:20→17:43)
[2019-06-16] MEDS: Insulin LISPRO 300 UNITS/3 ML VIAL SQ SCH ×4 (08:11→21:25)
[2019-06-16] MEDS: amLODIPine 5 MG TABLET PO SCH (09:00)
[2019-06-16] MEDS: (Febuxostat [Uloric] 80 MG) PO SCH (09:01)
[2019-06-16] MEDS: Amoxicillin 500 MG CAPSULE PO SCH ×3 (09:01→19:47)
[2019-06-16] MEDS: Insulin DETEMIR 100 UNIT/ML X5UNITS SQ SCH (09:01)
[2019-06-16] MEDS: Nystatin POWDER 30 GM BOTTLE TP SCH ×2 (09:01→21:25)
[2019-06-16] MEDS: Aspirin Enteric Coated 81 MG Tablet PO SCH (09:01)
[2019-06-16] MEDS: Acetaminophen 325 MG TABLET PO PRN (19:48)
[2019-06-16] MEDS: *HR* LORazepam 1 MG TABLET PO PRN (19:51)
[2019-06-17] MEDS: *HR* HYDROcodone/Acet 5/325 mg TABLET PO PRN ×2 (01:03→08:13)
[2019-06-17] MEDS: *HR* Heparin 5,000 UNIT/ML VIAL SQ SCH (06:02)
[2019-06-17] MEDS: Aspirin Enteric Coated 81 MG Tablet PO SCH (08:12)
[2019-06-17] MEDS: Amoxicillin 500 MG CAPSULE PO SCH (08:12)
[2019-06-17] MEDS: amLODIPine 5 MG TABLET PO SCH (08:13)
[2019-06-17] MEDS: Insulin LISPRO 300 UNITS/3 ML VIAL SQ SCH ×2 (08:17→13:13)
[2019-06-17] MEDS: Insulin DETEMIR 100 UNIT/ML X5UNITS SQ SCH (08:17)
[2019-06-17] MEDS: Nystatin POWDER 30 GM BOTTLE TP SCH (08:25)
[2019-06-17 11:14] VITALS: BP 138/73
== END 2019-06-17 14:20 | DRG 690 ==
LOC: EMEROOARM 17:48 → 3BNU 17:48 → SUATTDRO 19:05 → 3BNU 20:21
PROVIDERS: ADMIT Internal Medicine; ATTEND Internal Medicine

== ENCOUNTER 2021-10-20 12:27 | Inpatient (IN) ==
[2021-10-20] MEDS ORDERED: 0.9 % Sodium Chloride 1,000 ML IVC ONE (12:42)
[2021-10-20 14:06] LABS: White Blood Count 4.4 K/mcL (4.3-11.1)
[2021-10-20 14:06] LABS: Bacteria,Urine Many per hpf (None-Few); Bilirubin,Urine Negative (Negative); Blood,Urine Negative (Negative); Clarity,Urine Turbid (Clear); Color,Urine Yellow (Yellow); Glucose,Urine (UA) Normal (Normal); Ketones,Urine Negative (Negative); Leukocyte Esterase,Urine Negative (Negative); Mucus,Urine Few per lpf (None-Few); Nitrite,Urine Negative (Negative); PH,Urine 5.5 pH Units (5.0-8.0); Protein,Urine Negative (Neg-Trace); RBC,Urine 0-3 per hpf (0-3); Specific Gravity,Urine 1.018 (1.010-1.025); Squamous Epithelial Cell,Urine Few per hpf (None-Few); WBC,Urine 0-3 per hpf (0-3)
[2021-10-20 14:07] LABS: Basophils # 0.1 K/mcL (0.0-0.2); Basophils % 1.1 %; Eosinophils # 0.2 K/mcL (0.0-0.6); Eosinophils % 4.1 %; Hematocrit 35.2 % (35.3-44.9); Hemoglobin 11.8 g/dL (11.5-15.4); Immature Granulocytes % 0.2 % (0-4); Lymphocytes # 1.7 K/mcL (0.6-4.6); Lymphocytes % 39.2 %; Mean Corpuscular HGB Conc 33.5 g/dL (31.6-35.5); Mean Corpuscular Volume 101.4 fL (83.0-100.0); Mean Platelet Volume 10.3 fL (9.4-12.4); Monocytes # 0.4 K/mcL (0.0-1.3); Monocytes % 9.8 %; Platelet Count 295 K/mcL (140-400); Red Blood Count 3.47 M/mcL (3.82-4.97); Red Cell Distribution Width 12.9 % (11.5-14.5); Segmented Neutrophils % 45.6 %
[2021-10-20 14:21] LABS: VBG HCO3 27 mEq/L (21-27); VBG PCO2 57 mmHg (41-51); VBG PH 7.28 pH Units (7.32-7.42); VBG PO2 36 mmHg (25-50)
[2021-10-20 14:24] LABS: Prothrombin Time 11.4 Seconds (9.4-12.1)
[2021-10-20 14:27] LABS: Activated Partial Thrombo Time 31.3 Seconds (26.0-36.0); Alanine Aminotransferase 7 Units/L (7-52); Albumin 3.9 g/dL (3.5-5.7); Albumin/Globulin Ratio 1.5 (1.1-2.2); Alkaline Phosphatase 127 Units/L (34-104); Aspartate Amino Transferase 10 Units/L (13-39); BUN/Creatinine Ratio 21 (6-26); Bilirubin,Direct 0.1 mg/dL (0.0-0.2); Bilirubin,Indirect 0.5 mg/dL (0.0-1.0); Bilirubin,Total 0.6 mg/dL (0.3-1.0); Blood Urea Nitrogen 18 mg/dL (8-23); Calcium 9.1 mg/dL (8.6-10.3); Carbon Dioxide 28 mEq/L (23-29); Chloride 107 mEq/L (98-107); Ethanol < 10 mg/dL (Less than 10); Globulin 2.6 g/dL (2.4-3.5); Glucose 80 mg/dL (70-105); Osmolality,Calculated 291 (280-300); Potassium 3.7 mEq/L (3.5-5.1); Sodium 140 mEq/L (136-145); Total Protein 6.5 g/dL (6.4-8.9); Troponin I < 0.03 ng/mL (< 0.04); eGFR For African Americans > 60 (> 60); eGFR For Non-African Americans > 60 (> 60)
[2021-10-20 14:36] LABS: Amphetamine Screen,Urine Negative ng/mL (Cutoff=1000); Barbiturate Screen,Urine Negative ng/mL (Cutoff=200); Benzodiazepines Screen,Urine Negative ng/mL (Cutoff=200); Cannabinoid Screen,Urine Negative ng/mL (Cutoff = 50); Cocaine Screen,Urine Negative ng/mL (Cutoff= 300); Opiate Screen,Urine Positive ng/mL (Cutoff=300); Phencyclidine Screen,Urine Negative ng/mL (Cutoff=25)
[2021-10-20] MEDS ORDERED: Acetaminophen 325 MG TABLET PO PRN (15:13)
[2021-10-20] MEDS ORDERED: Naloxone 0.4 MG/ML INJ IVP PRN (15:13)
[2021-10-20] MEDS: 0.9 % Sodium Chloride 1,000 ML IVC SCH (18:27)
[2021-10-20] MEDS: Piperacillin/Tazobactam 3.375 GM in 0.9 % Sodium Chloride Mini Bag 100 ML IVPB SCH ×2 (18:27→23:23)
[2021-10-20] MEDS: Melatonin 3 MG TABLET PO SCH (20:23)
[2021-10-21] MEDS: *HR* Enoxaparin 30 MG/0.3 ML SYRINGE SQ SCH (05:19)
[2021-10-21 05:39] LABS: Hematocrit 34.4 % (35.3-44.9); Hemoglobin 11.2 g/dL (11.5-15.4); Mean Corpuscular HGB Conc 32.6 g/dL (31.6-35.5); Mean Corpuscular Hemoglobin 32.8 pg (28.0-33.3); Mean Corpuscular Volume 100.9 fL (83.0-100.0); Mean Platelet Volume 10.7 fL (9.4-12.4); Platelet Count 292 K/mcL (140-400); Red Blood Count 3.41 M/mcL (3.82-4.97); White Blood Count 5.2 K/mcL (4.3-11.1)
[2021-10-21 06:08] LABS: BUN/Creatinine Ratio 19 (6-26); Blood Urea Nitrogen 14 mg/dL (8-23); Calcium 8.6 mg/dL (8.6-10.3); Carbon Dioxide 22 mEq/L (23-29); Chloride 109 mEq/L (98-107); Glucose 72 mg/dL (70-105); Magnesium 1.7 mg/dL (1.6-2.6); Osmolality,Calculated 287 (280-300); Potassium 3.8 mEq/L (3.5-5.1); Sodium 139 mEq/L (136-145); eGFR For African Americans > 60 (> 60); eGFR For Non-African Americans > 60 (> 60)
[2021-10-21] MEDS: Aspirin Enteric Coated 81 MG Tablet PO SCH (08:27)
[2021-10-21] MEDS: 0.9 % Sodium Chloride 1,000 ML IVC SCH (08:40)
[2021-10-21] MEDS: amLODIPine 5 MG TABLET PO SCH (08:40)
[2021-10-21] MEDS ORDERED: IRBESARTAN 300 MG PO SCH (09:00)
[2021-10-21] MEDS: Piperacillin/Tazobactam 3.375 GM in 0.9 % Sodium Chloride Mini Bag 100 ML IVPB SCH ×2 (09:14→17:17)
[2021-10-21] MEDS ORDERED: Morphine Sulfate 2 MG/ML SYRINGE IVP ONE ×2 (12:53→17:45)
[2021-10-21] MEDS: lisinopriL 10 MG TABLET PO SCH (13:45)
[2021-10-21] MEDS: FEBUXOSTAT 80 MG PO SCH (14:30)
[2021-10-21] MEDS: Ondansetron 4 MG/2 ML VIAL IVP PRN (19:36)
[2021-10-21] MEDS: Melatonin 3 MG TABLET PO SCH (19:37)
[2021-10-21] MEDS ORDERED: *HR* LORazepam 2 MG/ML VIAL IVP ONE (19:56)
[2021-10-22] MEDS: *HR* Enoxaparin 30 MG/0.3 ML SYRINGE SQ SCH (04:11)
[2021-10-22 05:55] LABS: Basophils # 0.1 K/mcL (0.0-0.2); Eosinophils # 0.1 K/mcL (0.0-0.6); Eosinophils % 2.7 %; Hematocrit 37.5 % (35.3-44.9); Hemoglobin 12.3 g/dL (11.5-15.4); Immature Granulocytes % 0.2 % (0-4); Lymphocytes # 1.4 K/mcL (0.6-4.6); Lymphocytes % 26.8 %; Mean Corpuscular HGB Conc 32.8 g/dL (31.6-35.5); Mean Corpuscular Hemoglobin 33.4 pg (28.0-33.3); Mean Corpuscular Volume 101.9 fL (83.0-100.0); Mean Platelet Volume 10.2 fL (9.4-12.4); Monocytes # 0.6 K/mcL (0.0-1.3); Monocytes % 11.1 %; Platelet Count 283 K/mcL (140-400); Red Blood Count 3.68 M/mcL (3.82-4.97); Red Cell Distribution Width 12.9 % (11.5-14.5); Segmented Neutrophils % 58.2 %; White Blood Count 5.2 K/mcL (4.3-11.1)
[2021-10-22 06:15] LABS: Alanine Aminotransferase 4 Units/L (7-52); Albumin 3.7 g/dL (3.5-5.7); Albumin/Globulin Ratio 1.5 (1.1-2.2); Alkaline Phosphatase 132 Units/L (34-104); Aspartate Amino Transferase 12 Units/L (13-39); BUN/Creatinine Ratio 14 (6-26); Bilirubin,Total 0.6 mg/dL (0.3-1.0); Blood Urea Nitrogen 11 mg/dL (8-23); Calcium 8.8 mg/dL (8.6-10.3); Carbon Dioxide 21 mEq/L (23-29); Chloride 108 mEq/L (98-107); Globulin 2.4 g/dL (2.4-3.5); Glucose 202 mg/dL (70-105); Osmolality,Calculated 287 (280-300); Potassium 3.6 mEq/L (3.5-5.1); Sodium 136 mEq/L (136-145); Total Protein 6.1 g/dL (6.4-8.9); eGFR For African Americans > 60 (> 60); eGFR For Non-African Americans > 60 (> 60)
[2021-10-22] MEDS: lisinopriL 10 MG TABLET PO SCH (07:44)
[2021-10-22] MEDS: amLODIPine 5 MG TABLET PO SCH (07:44)
[2021-10-22] MEDS: Aspirin Enteric Coated 81 MG Tablet PO SCH (07:44)
[2021-10-22] MEDS: FEBUXOSTAT 80 MG PO SCH (07:45)
[2021-10-22] MEDS: Piperacillin/Tazobactam 3.375 GM in 0.9 % Sodium Chloride Mini Bag 100 ML IVPB SCH ×3 (07:45→17:19)
[2021-10-22] MEDS: Morphine Sulfate 2 MG/ML SYRINGE IVP PRN (09:49)
[2021-10-22] MEDS ORDERED: *HR* Dextrose 50 % in Water (Syg) 50 ML SYRINGE IVP PRN (11:52)
[2021-10-22] MEDS ORDERED: Dextrose Gel 15 GM/37.5 ML TUBE PO PRN ×2 (11:52)
[2021-10-22] MEDS ORDERED: D5% in Water 1,000 ML IVC PRN (11:52)
[2021-10-22 13:48] LABS: Estimated Average Glucose 174 mg/dl; Hemoglobin A1C 7.7 %
[2021-10-22] MEDS: Insulin LISPRO 300 UNITS/3 ML VIAL SUBQ SCH ×2 (17:20→20:58)
[2021-10-22] MEDS: Melatonin 3 MG TABLET PO SCH (20:57)
[2021-10-23] MEDS: Morphine Sulfate 2 MG/ML SYRINGE IVP PRN ×2 (00:50→11:25)
[2021-10-23] MEDS: Piperacillin/Tazobactam 3.375 GM in 0.9 % Sodium Chloride Mini Bag 100 ML IVPB SCH ×2 (00:52→10:00)
[2021-10-23 01:55] LABS: Basophils # 0.1 K/mcL (0.0-0.2); Basophils % 1.1 %; Eosinophils # 0.2 K/mcL (0.0-0.6); Eosinophils % 3.2 %; Immature Granulocytes % 0.2 % (0-4); Lymphocytes # 1.7 K/mcL (0.6-4.6); Lymphocytes % 36.1 %; Mean Corpuscular HGB Conc 32.8 g/dL (31.6-35.5); Mean Corpuscular Hemoglobin 32.7 pg (28.0-33.3); Mean Corpuscular Volume 99.7 fL (83.0-100.0); Mean Platelet Volume 10.3 fL (9.4-12.4); Monocytes # 0.4 K/mcL (0.0-1.3); Monocytes % 7.9 %; Neutrophils # 2.4 K/mcL (1.6-8.9); Platelet Count 296 K/mcL (140-400); Red Blood Count 3.21 M/mcL (3.82-4.97); Red Cell Distribution Width 12.9 % (11.5-14.5); Segmented Neutrophils % 51.5 %; White Blood Count 4.7 K/mcL (4.3-11.1)
[2021-10-23 01:57] LABS: Hemoglobin 10.5 g/dL (11.5-15.4)
[2021-10-23 02:16] LABS: Alanine Aminotransferase 6 Units/L (7-52); Albumin 3.3 g/dL (3.5-5.7); Albumin/Globulin Ratio 1.3 (1.1-2.2); Alkaline Phosphatase 116 Units/L (34-104); Aspartate Amino Transferase 11 Units/L (13-39); BUN/Creatinine Ratio 11 (6-26); Bilirubin,Total 0.5 mg/dL (0.3-1.0); Blood Urea Nitrogen 9 mg/dL (8-23); Calcium 8.6 mg/dL (8.6-10.3); Carbon Dioxide 24 mEq/L (23-29); Chloride 109 mEq/L (98-107); Globulin 2.6 g/dL (2.4-3.5); Glucose 111 mg/dL (70-105); Osmolality,Calculated 289 (280-300); Potassium 3.6 mEq/L (3.5-5.1); Sodium 140 mEq/L (136-145); Total Protein 5.9 g/dL (6.4-8.9); eGFR For African Americans > 60 (> 60); eGFR For Non-African Americans > 60 (> 60)
[2021-10-23] MEDS: *HR* Enoxaparin 30 MG/0.3 ML SYRINGE SQ SCH (05:25)
[2021-10-23] MEDS ORDERED: OLANZapine 10 MG VIAL IM ONE (07:30)
[2021-10-23] MEDS: Insulin LISPRO 300 UNITS/3 ML VIAL SUBQ SCH ×4 (07:39→21:15)
[2021-10-23] MEDS: Aspirin Enteric Coated 81 MG Tablet PO SCH (07:53)
[2021-10-23] MEDS: lisinopriL 10 MG TABLET PO SCH (07:53)
[2021-10-23] MEDS: amLODIPine 5 MG TABLET PO SCH (07:53)
[2021-10-23] MEDS: FEBUXOSTAT 80 MG PO SCH (07:53)
[2021-10-23] MEDS ORDERED: *HR* LORazepam 2 MG/ML VIAL IVP ONE (21:01)
[2021-10-23] MEDS: Melatonin 3 MG TABLET PO SCH (21:08)
[2021-10-24] MEDS: *HR* Enoxaparin 30 MG/0.3 ML SYRINGE SQ SCH (05:53)
[2021-10-24] MEDS: Insulin LISPRO 300 UNITS/3 ML VIAL SUBQ SCH ×4 (08:25→20:04)
[2021-10-24] MEDS: lisinopriL 10 MG TABLET PO SCH (11:25)
[2021-10-24] MEDS: Aspirin Enteric Coated 81 MG Tablet PO SCH (11:25)
[2021-10-24] MEDS: FEBUXOSTAT 80 MG PO SCH (11:26)
[2021-10-24] MEDS: amLODIPine 5 MG TABLET PO SCH (11:26)
[2021-10-24] MEDS ORDERED: D5% in Lactated Ringers 1,000 ML IVC SCH (16:15)
[2021-10-24 16:34] LABS: ABG Base Excess -1 mEq/L (-2 to 3); ABG HCO3 22 mEq/L (21-27); ABG Oxygen Saturation 97 % (95-98); ABG PCO2 33 mmHg (35-45); ABG PH 7.43 pH Units (7.32-7.45); ABG PO2 82 mmHg (85-104); ABG TCO2 23 mEq/L (20-26)
[2021-10-24] MEDS: Ringers Solution, Lactated 1,000 ML IVC SCH (16:58)
[2021-10-24] MEDS: Melatonin 3 MG TABLET PO SCH (20:11)
[2021-10-25] MEDS: *HR* Enoxaparin 30 MG/0.3 ML SYRINGE SQ SCH (05:56)
[2021-10-25] MEDS: Aspirin Enteric Coated 81 MG Tablet PO SCH (08:19)
[2021-10-25] MEDS: Insulin LISPRO 300 UNITS/3 ML VIAL SUBQ SCH ×4 (08:19→20:24)
[2021-10-25] MEDS: amLODIPine 5 MG TABLET PO SCH (08:20)
[2021-10-25] MEDS: lisinopriL 10 MG TABLET PO SCH (08:20)
[2021-10-25] MEDS: FEBUXOSTAT 80 MG PO SCH (08:20)
[2021-10-25] MEDS: Morphine Sulfate 2 MG/ML SYRINGE IVP PRN ×2 (09:23→23:15)
[2021-10-25] MEDS: Megestrol Acetate 400 MG/10 ML UDC PO SCH (11:29)
[2021-10-25] MEDS: Ringers Solution, Lactated 1,000 ML IVC SCH (11:30)
[2021-10-25] MEDS ORDERED: OLANZapine 10 MG VIAL IM ONE (11:34)
[2021-10-25] MEDS ORDERED: Haloperidol Lactate 5 MG/ML VIAL IM ONE (19:57)
[2021-10-25] MEDS: Melatonin 3 MG TABLET PO SCH (20:24)
[2021-10-25] MEDS: Ondansetron 4 MG/2 ML VIAL IVP PRN (23:15)
[2021-10-26 04:54] LABS: Basophils % 0.7 %; Eosinophils # 0.1 K/mcL (0.0-0.6); Eosinophils % 1.8 %; Hematocrit 34.2 % (35.3-44.9); Hemoglobin 11.1 g/dL (11.5-15.4); Immature Granulocytes % 0.3 % (0-4); Lymphocytes # 1.7 K/mcL (0.6-4.6); Lymphocytes % 27.4 %; Mean Corpuscular HGB Conc 32.5 g/dL (31.6-35.5); Mean Corpuscular Volume 101.8 fL (83.0-100.0); Mean Platelet Volume 10.2 fL (9.4-12.4); Monocytes # 0.6 K/mcL (0.0-1.3); Monocytes % 10.6 %; Neutrophils # 3.6 K/mcL (1.6-8.9); Platelet Count 318 K/mcL (140-400); Red Blood Count 3.36 M/mcL (3.82-4.97); Red Cell Distribution Width 13.2 % (11.5-14.5); Segmented Neutrophils % 59.2 %; White Blood Count 6.1 K/mcL (4.3-11.1)
[2021-10-26 05:09] LABS: Alanine Aminotransferase 6 Units/L (7-52); Albumin 3.4 g/dL (3.5-5.7); Albumin/Globulin Ratio 1.4 (1.1-2.2); Alkaline Phosphatase 116 Units/L (34-104); Aspartate Amino Transferase 10 Units/L (13-39); BUN/Creatinine Ratio 26 (6-26); Bilirubin,Total 0.5 mg/dL (0.3-1.0); Blood Urea Nitrogen 22 mg/dL (8-23); Calcium 8.7 mg/dL (8.6-10.3); Carbon Dioxide 27 mEq/L (23-29); Chloride 110 mEq/L (98-107); Globulin 2.4 g/dL (2.4-3.5); Glucose 172 mg/dL (70-105); Osmolality,Calculated 307 (280-300); Potassium 3.4 mEq/L (3.5-5.1); Sodium 145 mEq/L (136-145); Total Protein 5.8 g/dL (6.4-8.9); eGFR For African Americans > 60 (> 60); eGFR For Non-African Americans > 60 (> 60)
[2021-10-26] MEDS: *HR* Enoxaparin 30 MG/0.3 ML SYRINGE SQ SCH (05:36)
[2021-10-26] MEDS: Insulin LISPRO 300 UNITS/3 ML VIAL SUBQ SCH ×4 (07:01→22:29)
[2021-10-26] MEDS: Aspirin Enteric Coated 81 MG Tablet PO SCH (07:23)
[2021-10-26] MEDS: Megestrol Acetate 400 MG/10 ML UDC PO SCH (07:23)
[2021-10-26] MEDS: FEBUXOSTAT 80 MG PO SCH (07:24)
[2021-10-26] MEDS: amLODIPine 5 MG TABLET PO SCH (07:24)
[2021-10-26] MEDS: lisinopriL 10 MG TABLET PO SCH (07:25)
[2021-10-26] MEDS: Ringers Solution, Lactated 1,000 ML IVC SCH (08:59)
[2021-10-26] MEDS ORDERED: QUEtiapine Fumarate 25 MG TABLET PO SCH (21:00)
[2021-10-26] MEDS: Melatonin 3 MG TABLET PO SCH (22:27)
[2021-10-27] MEDS: *HR* Enoxaparin 30 MG/0.3 ML SYRINGE SQ SCH (05:21)
[2021-10-27] MEDS ORDERED: Heparin 1,000 UNITS/500 mL 500 ML ONE (07:21)
[2021-10-27] MEDS ORDERED: *HR* FentaNYL (PF) 100 MCG/2 ML VIAL ONE ×2 (07:28→10:46)
[2021-10-27] MEDS ORDERED: *HR* Propofol 200 MG/20 ML VIAL IVP ONE (07:28)
[2021-10-27] MEDS: Insulin LISPRO 300 UNITS/3 ML VIAL SUBQ SCH ×3 (07:48→20:25)
[2021-10-27] MEDS ORDERED: Ketamine HCL *QUVA* 50mg (1mL) SYRINGE ONE (07:56)
[2021-10-27] MEDS ORDERED: CeFAZolin Syr 2,000MG/20 ML 2,000 MG/20 ML SYRINGE IVPB ONE (07:57)
[2021-10-27] MEDS ORDERED: *HR* Midazolam HCl 2 MG/2 ML VIAL ONE (07:57)
[2021-10-27] MEDS ORDERED: Ringers Solution, Lactated 1,000 ML IVC SCH ×2 (08:00→14:24)
[2021-10-27] MEDS ORDERED: Ropivacaine/PF 0.5% 30 ML VIAL ONE (09:01)
[2021-10-27] MEDS ORDERED: EPHEDrine 50 MG/ML VIAL ONE (09:09)
[2021-10-27] MEDS ORDERED: Ondansetron 4 MG/2 ML VIAL ONE (09:57)
[2021-10-27] MEDS ORDERED: Sugammadex Sodium 200 MG/2 ML VIAL IV ONE (11:05)
[2021-10-27 14:17] LABS: Hematocrit 37.1 % (35.3-44.9); Hemoglobin 11.8 g/dL (11.5-15.4); Mean Corpuscular HGB Conc 31.8 g/dL (31.6-35.5); Mean Corpuscular Volume 103.6 fL (83.0-100.0); Mean Platelet Volume 10.3 fL (9.4-12.4); Platelet Count 267 K/mcL (140-400); Red Blood Count 3.58 M/mcL (3.82-4.97); Red Cell Distribution Width 13.2 % (11.5-14.5); White Blood Count 8.7 K/mcL (4.3-11.1)
[2021-10-27] MEDS ORDERED: *HR* Dextrose 50 % in Water (Syg) 50 ML SYRINGE IVP PRN (14:24)
[2021-10-27] MEDS ORDERED: Dextrose Gel 15 GM/37.5 ML TUBE PO PRN ×2 (14:24)
[2021-10-27] MEDS ORDERED: D5% in Water 1,000 ML IVC PRN (14:24)
[2021-10-27] MEDS ORDERED: Ondansetron 4 MG/2 ML VIAL IVP PRN (14:24)
[2021-10-27] MEDS ORDERED: Naloxone 0.4 MG/ML INJ IVP PRN (14:24)
[2021-10-27 14:36] LABS: BUN/Creatinine Ratio 27 (6-26); Blood Urea Nitrogen 20 mg/dL (8-23); Calcium 8.9 mg/dL (8.6-10.3); Carbon Dioxide 24 mEq/L (23-29); Chloride 108 mEq/L (98-107); Glucose 207 mg/dL (70-105); Magnesium 1.7 mg/dL (1.6-2.6); Osmolality,Calculated 303 (280-300); Phosphorous 3.3 mg/dL (2.7-4.5); Sodium 142 mEq/L (136-145); eGFR For African Americans > 60 (> 60); eGFR For Non-African Americans > 60 (> 60)
[2021-10-27] MEDS: Ringers Solution, Lactated 1,000 ML IVC SCH (15:23)
[2021-10-27] MEDS ORDERED: Haloperidol Lactate 5 MG/ML VIAL IVP ONE (16:49)
[2021-10-27] MEDS: Acetaminophen 325 MG TABLET PO SCH (19:06)
[2021-10-27] MEDS: Melatonin 3 MG TABLET PO SCH (20:15)
[2021-10-27] MEDS: QUEtiapine Fumarate 25 MG TABLET PO SCH (20:16)
[2021-10-28] MEDS: Acetaminophen 325 MG TABLET PO SCH ×5 (00:07→23:50)
[2021-10-28] MEDS: *HR* Enoxaparin 30 MG/0.3 ML SYRINGE SQ SCH (06:31)
[2021-10-28] MEDS: cefTRIAXone 1,000 MG in 0.9 % Sodium Chloride Mini Bag 100 ML IVPB SCH (09:46)
[2021-10-28] MEDS: Insulin LISPRO 300 UNITS/3 ML VIAL SUBQ SCH ×4 (09:56→21:01)
[2021-10-28] MEDS: Patient Taking Own Medication 1 EACH PO SCH (09:57)
[2021-10-28] MEDS: Aspirin Enteric Coated 81 MG Tablet PO SCH (09:57)
[2021-10-28] MEDS: amLODIPine 5 MG TABLET PO SCH (09:57)
[2021-10-28] MEDS: lisinopriL 10 MG TABLET PO SCH (09:57)
[2021-10-28] MEDS: Megestrol Acetate 400 MG/10 ML UDC PO SCH (09:57)
[2021-10-28] MEDS ORDERED: Haloperidol Lactate 5 MG/ML VIAL IVP ONE (13:11)
[2021-10-28 13:17] LABS: Hematocrit 32.9 % (35.3-44.9); Hemoglobin 10.7 g/dL (11.5-15.4); Mean Corpuscular HGB Conc 32.5 g/dL (31.6-35.5); Mean Corpuscular Hemoglobin 33.2 pg (28.0-33.3); Mean Corpuscular Volume 102.2 fL (83.0-100.0); Mean Platelet Volume 10.6 fL (9.4-12.4); Platelet Count 295 K/mcL (140-400); Red Blood Count 3.22 M/mcL (3.82-4.97); Red Cell Distribution Width 13.2 % (11.5-14.5); White Blood Count 11.7 K/mcL (4.3-11.1)
[2021-10-28 13:35] LABS: BUN/Creatinine Ratio 33 (6-26); Blood Urea Nitrogen 26 mg/dL (8-23); Carbon Dioxide 26 mEq/L (23-29); Chloride 106 mEq/L (98-107); Glucose 209 mg/dL (70-105); Magnesium 1.6 mg/dL (1.6-2.6); Osmolality,Calculated 305 (280-300); Phosphorous 2.5 mg/dL (2.7-4.5); Potassium 3.5 mEq/L (3.5-5.1); Sodium 142 mEq/L (136-145); eGFR For African Americans > 60 (> 60); eGFR For Non-African Americans > 60 (> 60)
[2021-10-28] MEDS: QUEtiapine Fumarate 25 MG TABLET PO SCH (19:37)
[2021-10-28] MEDS: Melatonin 3 MG TABLET PO SCH (19:45)
[2021-10-28] MEDS ORDERED: *HR* Metoprolol 5 MG/5 ML VIAL IVP ONE (21:09)
[2021-10-28] MEDS ORDERED: *HR* LORazepam 2 MG/ML VIAL IVP ONE (22:01)
[2021-10-28] MEDS ORDERED: Haloperidol Lactate 5 MG/ML VIAL IM ONE (22:01)
[2021-10-28] MEDS: Ringers Solution, Lactated 1,000 ML IVC SCH (23:55)
[2021-10-29 05:16] LABS: Bilirubin,Urine Negative (Negative); Blood,Urine Small (Negative); Clarity,Urine Clear (Clear); Color,Urine Light-Yellow (Yellow); Glucose,Urine (UA) 50 mg/dL (Normal); Ketones,Urine 60 mg/dL (Negative); Leukocyte Esterase,Urine Small (Negative); Mucus,Urine Few per lpf (None-Few); Nitrite,Urine Negative (Negative); Protein,Urine 30 mg/dL (Neg-Trace); RBC,Urine 0-3 per hpf (0-3); Specific Gravity,Urine 1.021 (1.010-1.025); Squamous Epithelial Cell,Urine Few per hpf (None-Few); Urobilinogen,Urine Normal (Normal)
[2021-10-29] MEDS: Acetaminophen 325 MG TABLET PO SCH ×4 (06:13→23:54)
[2021-10-29] MEDS: *HR* Enoxaparin 30 MG/0.3 ML SYRINGE SQ SCH (06:13)
[2021-10-29 07:37] LABS: Hematocrit 32.3 % (35.3-44.9); Hemoglobin 10.4 g/dL (11.5-15.4); Mean Corpuscular HGB Conc 32.2 g/dL (31.6-35.5); Mean Corpuscular Volume 102.5 fL (83.0-100.0); Mean Platelet Volume 10.9 fL (9.4-12.4); Platelet Count 279 K/mcL (140-400); Red Blood Count 3.15 M/mcL (3.82-4.97); Red Cell Distribution Width 13.5 % (11.5-14.5); White Blood Count 9.6 K/mcL (4.3-11.1)
[2021-10-29 07:40] LABS: BUN/Creatinine Ratio 30 (6-26); Blood Urea Nitrogen 21 mg/dL (8-23); Carbon Dioxide 26 mEq/L (23-29); Chloride 106 mEq/L (98-107); Glucose 188 mg/dL (70-105); Magnesium 1.7 mg/dL (1.6-2.6); Osmolality,Calculated 308 (280-300); Phosphorous 2.1 mg/dL (2.7-4.5); Potassium 3.4 mEq/L (3.5-5.1); Sodium 145 mEq/L (136-145); eGFR For African Americans > 60 (> 60); eGFR For Non-African Americans > 60 (> 60)
[2021-10-29] MEDS ORDERED: Potassium Phosphate 44 MEQ in 0.9 % Sodium Chloride 250 ML IVPB ONE (08:07)
[2021-10-29] MEDS: Insulin LISPRO 300 UNITS/3 ML VIAL SUBQ SCH ×4 (08:39→21:30)
[2021-10-29] MEDS: Aspirin Enteric Coated 81 MG Tablet PO SCH (08:42)
[2021-10-29] MEDS: amLODIPine 5 MG TABLET PO SCH (08:43)
[2021-10-29] MEDS: lisinopriL 10 MG TABLET PO SCH (08:44)
[2021-10-29] MEDS: Megestrol Acetate 400 MG/10 ML UDC PO SCH (09:01)
[2021-10-29] MEDS: cefTRIAXone 1,000 MG in 0.9 % Sodium Chloride Mini Bag 100 ML IVPB SCH (09:04)
[2021-10-29] MEDS: Patient Taking Own Medication 1 EACH PO SCH (11:18)
[2021-10-29] MEDS: Melatonin 3 MG TABLET PO SCH (21:41)
[2021-10-29] MEDS: QUEtiapine Fumarate 25 MG TABLET PO SCH (21:43)
[2021-10-30] MEDS: *HR* Enoxaparin 30 MG/0.3 ML SYRINGE SQ SCH (06:49)
[2021-10-30] MEDS: Acetaminophen 325 MG TABLET PO SCH ×3 (06:49→18:41)
[2021-10-30] MEDS: lisinopriL 10 MG TABLET PO SCH (08:12)
[2021-10-30] MEDS: cefTRIAXone 1,000 MG in 0.9 % Sodium Chloride Mini Bag 100 ML IVPB SCH (08:12)
[2021-10-30] MEDS: Patient Taking Own Medication 1 EACH PO SCH (08:12)
[2021-10-30] MEDS: Megestrol Acetate 400 MG/10 ML UDC PO SCH (08:12)
[2021-10-30] MEDS: amLODIPine 5 MG TABLET PO SCH (08:12)
[2021-10-30] MEDS: Insulin LISPRO 300 UNITS/3 ML VIAL SUBQ SCH ×4 (08:12→20:34)
[2021-10-30] MEDS: Haloperidol Lactate 5 MG/ML VIAL IM PRN ×2 (09:28→18:38)
[2021-10-30] MEDS: Aspirin Enteric Coated 81 MG Tablet PO SCH (12:27)
[2021-10-30] MEDS: QUEtiapine Fumarate 25 MG TABLET PO SCH (22:14)
[2021-10-30] MEDS: Melatonin 3 MG TABLET PO SCH (22:14)
[2021-10-30] MEDS ORDERED: *HR* Metoprolol 5 MG/5 ML VIAL IVP ONE (22:52)
[2021-10-31] MEDS: Acetaminophen 325 MG TABLET PO SCH ×5 (00:19→23:49)
[2021-10-31] MEDS: Morphine Sulfate 2 MG/ML SYRINGE IVP PRN ×2 (01:27→08:01)
[2021-10-31 04:55] LABS: Hematocrit 29.7 % (35.3-44.9); Hemoglobin 9.6 g/dL (11.5-15.4); Mean Corpuscular HGB Conc 32.3 g/dL (31.6-35.5); Mean Corpuscular Volume 102.1 fL (83.0-100.0); Mean Platelet Volume 11.2 fL (9.4-12.4); Platelet Count 249 K/mcL (140-400); Red Blood Count 2.91 M/mcL (3.82-4.97); Red Cell Distribution Width 13.3 % (11.5-14.5); White Blood Count 7.2 K/mcL (4.3-11.1)
[2021-10-31 05:14] LABS: BUN/Creatinine Ratio 36 (6-26); Blood Urea Nitrogen 22 mg/dL (8-23); Calcium 8.5 mg/dL (8.6-10.3); Carbon Dioxide 26 mEq/L (23-29); Chloride 110 mEq/L (98-107); Glucose 180 mg/dL (70-105); Osmolality,Calculated 310 (280-300); Potassium 3.5 mEq/L (3.5-5.1); Sodium 146 mEq/L (136-145); eGFR For African Americans > 60 (> 60); eGFR For Non-African Americans > 60 (> 60)
[2021-10-31] MEDS: *HR* Enoxaparin 30 MG/0.3 ML SYRINGE SQ SCH (06:03)
[2021-10-31] MEDS: cefTRIAXone 1,000 MG in 0.9 % Sodium Chloride Mini Bag 100 ML IVPB SCH (08:18)
[2021-10-31] MEDS ORDERED: *HR* Metoprolol 5 MG/5 ML VIAL IVP ONE ×3 (08:31→21:14)
[2021-10-31] MEDS: Insulin LISPRO 300 UNITS/3 ML VIAL SUBQ SCH ×4 (12:06→20:56)
[2021-10-31] MEDS: Aspirin Enteric Coated 81 MG Tablet PO SCH (12:07)
[2021-10-31] MEDS: Patient Taking Own Medication 1 EACH PO SCH (12:07)
[2021-10-31] MEDS: lisinopriL 10 MG TABLET PO SCH (12:07)
[2021-10-31] MEDS: Megestrol Acetate 400 MG/10 ML UDC PO SCH (12:07)
[2021-10-31] MEDS: amLODIPine 5 MG TABLET PO SCH (12:07)
[2021-10-31] MEDS: Melatonin 3 MG TABLET PO SCH (20:57)
[2021-10-31] MEDS: QUEtiapine Fumarate 25 MG TABLET PO SCH (20:57)
[2021-11-01] MEDS ORDERED: *HR* Metoprolol 5 MG/5 ML VIAL IVP ONE ×4 (04:14→09:12)
[2021-11-01 05:20] LABS: Hematocrit 36.4 % (35.3-44.9); Mean Corpuscular HGB Conc 32.1 g/dL (31.6-35.5); Mean Corpuscular Hemoglobin 32.8 pg (28.0-33.3); Mean Platelet Volume 11.3 fL (9.4-12.4); Platelet Count 343 K/mcL (140-400); Red Blood Count 3.57 M/mcL (3.82-4.97); Red Cell Distribution Width 13.2 % (11.5-14.5); White Blood Count 8.3 K/mcL (4.3-11.1)
[2021-11-01 05:23] LABS: Hemoglobin 11.7 g/dL (11.5-15.4)
[2021-11-01] MEDS: Acetaminophen 325 MG TABLET PO SCH ×4 (05:33→23:38)
[2021-11-01 05:41] LABS: BUN/Creatinine Ratio 35 (6-26); Blood Urea Nitrogen 26 mg/dL (8-23); Calcium 9.1 mg/dL (8.6-10.3); Carbon Dioxide 17 mEq/L (23-29); Chloride 110 mEq/L (98-107); Glucose 265 mg/dL (70-105); Osmolality,Calculated 318 (280-300); Potassium 3.8 mEq/L (3.5-5.1); Sodium 147 mEq/L (136-145); eGFR For African Americans > 60 (> 60); eGFR For Non-African Americans > 60 (> 60)
[2021-11-01] MEDS: *HR* Enoxaparin 30 MG/0.3 ML SYRINGE SQ SCH (05:48)
[2021-11-01] MEDS: cefTRIAXone 1,000 MG in 0.9 % Sodium Chloride Mini Bag 100 ML IVPB SCH (08:11)
[2021-11-01] MEDS: Insulin LISPRO 300 UNITS/3 ML VIAL SUBQ SCH ×4 (08:11→20:28)
[2021-11-01] MEDS: Megestrol Acetate 400 MG/10 ML UDC PO SCH (09:37)
[2021-11-01] MEDS: amLODIPine 5 MG TABLET PO SCH (09:37)
[2021-11-01] MEDS: Aspirin Enteric Coated 81 MG Tablet PO SCH (09:37)
[2021-11-01] MEDS: Patient Taking Own Medication 1 EACH PO SCH (09:38)
[2021-11-01] MEDS: lisinopriL 10 MG TABLET PO SCH (09:38)
[2021-11-01] MEDS: *HR* OxyCODONE/APAP 7.5/325 TABLET PO SCH ×3 (12:00→23:38)
[2021-11-01] MEDS: Morphine Sulfate 2 MG/ML SYRINGE IVP PRN ×2 (12:13→23:50)
[2021-11-01] MEDS: Melatonin 3 MG TABLET PO SCH (20:28)
[2021-11-01] MEDS: QUEtiapine Fumarate 25 MG TABLET PO SCH (20:29)
[2021-11-01] MEDS: Nystatin POWDER 30 GM BOTTLE TP SCH (22:08)
[2021-11-02 03:39] LABS: Hematocrit 33.5 % (35.3-44.9); Hemoglobin 10.8 g/dL (11.5-15.4); Mean Corpuscular HGB Conc 32.2 g/dL (31.6-35.5); Mean Corpuscular Hemoglobin 32.6 pg (28.0-33.3); Mean Corpuscular Volume 101.2 fL (83.0-100.0); Mean Platelet Volume 11.6 fL (9.4-12.4); Platelet Count 340 K/mcL (140-400); Red Blood Count 3.31 M/mcL (3.82-4.97); Red Cell Distribution Width 13.4 % (11.5-14.5); White Blood Count 7.6 K/mcL (4.3-11.1)
[2021-11-02 03:54] LABS: BUN/Creatinine Ratio 39 (6-26); Blood Urea Nitrogen 33 mg/dL (8-23); Calcium 9.1 mg/dL (8.6-10.3); Carbon Dioxide 22 mEq/L (23-29); Chloride 114 mEq/L (98-107); Glucose 204 mg/dL (70-105); Osmolality,Calculated 323 (280-300); Potassium 3.3 mEq/L (3.5-5.1); Sodium 150 mEq/L (136-145); eGFR For African Americans > 60 (> 60); eGFR For Non-African Americans > 60 (> 60)
[2021-11-02] MEDS: *HR* Enoxaparin 30 MG/0.3 ML SYRINGE SQ SCH (06:07)
[2021-11-02] MEDS: Acetaminophen 325 MG TABLET PO SCH ×3 (06:08→16:58)
[2021-11-02] MEDS: *HR* OxyCODONE/APAP 7.5/325 TABLET PO SCH ×3 (06:08→16:57)
[2021-11-02] MEDS: *HR* Metoprolol 5 MG/5 ML VIAL IVP PRN ×2 (08:18→14:45)
[2021-11-02] MEDS ORDERED: Potassium Chloride 20 MEQ in D5% in Water 1,000 ML IVC SCH (08:30)
[2021-11-02] MEDS: Morphine Sulfate 2 MG/ML SYRINGE IVP PRN ×2 (08:33→14:45)
[2021-11-02] MEDS: cefTRIAXone 1,000 MG in 0.9 % Sodium Chloride Mini Bag 100 ML IVPB SCH (09:03)
[2021-11-02] MEDS: Patient Taking Own Medication 1 EACH PO SCH (09:04)
[2021-11-02] MEDS: amLODIPine 5 MG TABLET PO SCH (09:16)
[2021-11-02] MEDS: Aspirin Enteric Coated 81 MG Tablet PO SCH (09:16)
[2021-11-02] MEDS: Megestrol Acetate 400 MG/10 ML UDC PO SCH (09:16)
[2021-11-02] MEDS: lisinopriL 10 MG TABLET PO SCH (09:17)
[2021-11-02] MEDS: Insulin LISPRO 300 UNITS/3 ML VIAL SUBQ SCH ×3 (09:17→16:57)
[2021-11-02] MEDS ORDERED: Ketorolac 30 MG/ML VIAL IVP ONE (10:09)
[2021-11-02] MEDS: Nystatin POWDER 30 GM BOTTLE TP SCH (10:39)
[2021-11-02] MEDS ORDERED: Acetaminophen IV 1,000 MG/100 ML BAG IVPB ONE (11:48)
[2021-11-02 12:46] VITALS: BP 178/102; PULSE 78; TEMP 99.8; O2SAT 97
[2021-11-02] MEDS ORDERED: DilTIAZem 50 MG/50 ML IV.SOLN IVC SCH (14:00)
== END 2021-11-02 18:56 | disposition hospice, home (50) | DRG 981 ==
LOC: EMEROOARM 12:27 → 3BNU 12:27 → SUATTDRO 16:58 → 3BNU 18:52 → 4WAOSI 10-26 15:36 → 2ANU 11-02 12:32
PROVIDERS: ADMIT Internal Medicine; ATTEND Pharmacist